=== PATIENT | male | born 1980 | race Caucasian/White ===

== ENCOUNTER 2019-06-24 15:54 | Observation (INO) | payer MEDICAID ==
[~2019-06-24] VITALS: Ht 182.9 cm; Wt 60.0 kg
[2019-06-24 16:36] LABS: BASOPHILS % (AUTO) 0.6 % (0-1); EOSINOPHILS % (AUTO) 0.1 % (0-6); HEMATOCRIT 39.6 % (42.0-52.0); HEMOGLOBIN 13.9 g/dl (14.0-17.9); LYMPHOCYTES # (AUTO) 1.3 X10'3 (1.1-4.8); MEAN CORPUSCULAR HEMOGLOBIN 35.9 PG (27.0-31.0); MEAN CORPUSCULAR HGB CONC 35.2 g/dL (33.0-36.5); MEAN CORPUSCULAR VOLUME 101.9 FL (78-98); MONOCYTES # (AUTO) 1.4 X10'3 (0-0.9); MONOCYTES % (AUTO) 18.2 % (2-12); NEUTROPHILS # (AUTO) 4.9 X10'3 (1.8-7.7); NEUTROPHILS % (AUTO) 64.1 % (42-75); PLATELET COUNT 208 X10'3 (140-440); RED BLOOD COUNT 3.88 X10'6 (4.70-6.10); WHITE BLOOD COUNT 7.7 X10'3 (4.5-11.0)
[2019-06-24 16:53] LABS: ALANINE AMINOTRANSFERASE 55 U/L (12-78); ALBUMIN 3.5 G/DL (3.4-5.0); ALBUMIN/GLOBULIN RATIO 1.2 (1.1-1.5); ALKALINE PHOSPHATASE 82 IU/L (46-116); ANION GAP 14 (8-16); ASPARTATE AMINO TRANSFERASE 35 U/L (10-37); BILIRUBIN,TOTAL 1.4 MG/DL (0.1-1.0); BLOOD UREA NITROGEN 18 MG/DL (7-18); BUN/CREATININE RATIO 14.8 (5.4-32.0); CALCIUM 7.8 MG/DL (8.5-10.1); CHLORIDE 100 MMOL/L (99-107); CREATININE 1.22 MG/DL (0.60-1.10); GLUCOSE 184 MG/DL (70-104); LIPASE 91 U/L (73-393); POTASSIUM 4.7 MMOL/L (3.5-5.1); SODIUM 133 MMOL/L (135-145); TOTAL CARBON DIOXIDE 19.4 MMOL/L (24-32); TOTAL PROTEIN 6.5 G/DL (6.4-8.2); eGFR 67 ML/MIN
[2019-06-24 17:36] LABS: ABG BASE EXCESS -11.3 mmol/L (-2.0-3.0); ABG HCO3 13.4 mmol/L (22.0-26.0); ABG PCO2 (T) 27.6 mmHg (35.0-45.0); ABG PH (T) 7.305 (7.350-7.450); ABG PO2 (T) 109.5 mmHg (83-108); ALLEN'S TEST Positive; FCOHb 0.9 % (0.5-1.5); FMetHb 0.2 % (0.3-1.12); FO2Hb 96.9 % (94-100); TOTAL HEMOGLOBIN 13.7 G/dl (14.0-17.9)
[2019-06-24] MEDS ORDERED: MESSAGE TO PHARMACY PO ONE (18:05)
[2019-06-24] MEDS ORDERED: magnesium 4gm in 100ml NS 100 ML IV PRN (18:05)
[2019-06-24] MEDS ORDERED: potassium Cl 20 mEq SR tablet PO PRN ×2 (18:05)
[2019-06-24] MEDS ORDERED: magnesium Cl slow-release 64mg tablet PO PRN (18:05)
[2019-06-24] MEDS ORDERED: magnesium 2GM in 50ml NS 50 ML IV PRN (18:05)
[2019-06-24] MEDS ORDERED: glucagon, human recombinant 1mg kit SUBCUT PRN (18:05)
[2019-06-24] MEDS ORDERED: potassium CL 10mEq/100ml bag 100 ML IV PRN ×2 (18:05)
[2019-06-24] MEDS ORDERED: dextrose ORAL solution 15 GM/59 ML bottle PO PRN ×2 (18:05)
[2019-06-24] MEDS ORDERED: acetaminophen 325mg tablet PO PRN (18:05)
[2019-06-24] MEDS ORDERED: dextrose 50%-water 50ml dispensing syringe IV PRN ×2 (18:05)
[2019-06-24] MEDS ORDERED: ondansetron/PF 4mg/2ml inj IV PRN (18:05)
[2019-06-24] MEDS ORDERED: haloperidol lactate 5mg/ml inj IM PRN (18:30)
[2019-06-24] MEDS ORDERED: thiamine inj. 100 MG in normal saline 100ml IV soln 100 ML IV ONE (18:30)
[2019-06-24] MEDS ORDERED: haloperidol 5mg tablet PO PRN (18:30)
[2019-06-24] MEDS: normal saline 1000ml 1,000 ML IV SCH (18:34)
[2019-06-24 18:35] LABS: HEMOGLOBIN A1C 8.8 % (4.5-6.2)
[2019-06-24] MEDS: insulin Lispro (HumaLOG) vial - multi-dose SQ SCH ×2 (19:22→20:58)
--- NOTE | 2019-06-24 19:30 | NUR ---
Received report from Rachana HERRERA pt arrived via gurney, ambulated to bed, on RA, A&Ox4, oriented to room, laurie vivas.
[2019-06-24 19:45] VITALS: BP 135/81
[2019-06-24] MEDS: LORazepam 2 mg/ml vial IV PRN (20:08)
[2019-06-24] MEDS: nicotine 21mg patch - 24 hr TD SCH (20:08)
[2019-06-24] MEDS ORDERED: MULT-933 PO (20:55)
[2019-06-24] MEDS ORDERED: INSU100C4 SQ (20:56)
[2019-06-24] MEDS ORDERED: insulin glargine (Lantus) pen - multi-dose SQ SCH (21:00)
[2019-06-24 22:16] LABS: ALANINE AMINOTRANSFERASE 49 U/L (12-78); ALBUMIN 3.4 G/DL (3.4-5.0); ALBUMIN/GLOBULIN RATIO 1.2 (1.1-1.5); ALKALINE PHOSPHATASE 75 IU/L (46-116); ANION GAP 13 (8-16); ASPARTATE AMINO TRANSFERASE 28 U/L (10-37); BILIRUBIN,TOTAL 1.3 MG/DL (0.1-1.0); BLOOD UREA NITROGEN 16 MG/DL (7-18); BUN/CREATININE RATIO 13.2 (5.4-32.0); CALCIUM 7.7 MG/DL (8.5-10.1); CHLORIDE 100 MMOL/L (99-107); CREATININE 1.21 MG/DL (0.60-1.10); GLUCOSE 194 MG/DL (70-104); POTASSIUM 3.1 MMOL/L (3.5-5.1); SODIUM 133 MMOL/L (135-145); TOTAL CARBON DIOXIDE 19.9 MMOL/L (24-32); TOTAL PROTEIN 6.2 G/DL (6.4-8.2); eGFR 67 ML/MIN
[2019-06-24 22:30] VITALS: BP 131/81
[2019-06-25] MEDS: LORazepam 2 mg/ml vial IV PRN ×2 (02:29→11:40)
[2019-06-25 02:30] VITALS: BP 118/75
[2019-06-25] MEDS: normal saline 1000ml 1,000 ML IV SCH (02:47)
[2019-06-25 06:00] VITALS: BP 118/66
[2019-06-25 06:12] LABS: HEMATOCRIT 36.7 % (42.0-52.0); MEAN CORPUSCULAR HEMOGLOBIN 35.7 PG (27.0-31.0); MEAN CORPUSCULAR HGB CONC 35.5 g/dL (33.0-36.5); MEAN CORPUSCULAR VOLUME 100.5 FL (78-98); PLATELET COUNT 181 X10'3 (140-440); RED BLOOD COUNT 3.65 X10'6 (4.70-6.10); RED CELL DISTRIBUTION WIDTH 13.1 % (11.5-14.5); WHITE BLOOD COUNT 5.8 X10'3 (4.5-11.0)
[2019-06-25 06:13] LABS: BASOPHILS % (AUTO) 0.5 % (0-1); EOSINOPHILS # (AUTO) 0.1 X10'3 (0-0.9); LYMPHOCYTES # (AUTO) 1.4 X10'3 (1.1-4.8); LYMPHOCYTES % (AUTO) 24.1 % (21-51); MEAN PLATELET VOLUME 8.1 FL (7.4-10.4); MONOCYTES # (AUTO) 0.9 X10'3 (0-0.9); MONOCYTES % (AUTO) 14.6 % (2-12); NEUTROPHILS # (AUTO) 3.5 X10'3 (1.8-7.7); NEUTROPHILS % (AUTO) 59.8 % (42-75)
--- NOTE | 2019-06-25 06:20 | NUR ---
Patient in room PCU 3024. I have received report from Cira HERRERA and had the opportunity to ask questions and assume patient care.
--- NOTE | 2019-06-25 06:23 | NUR ---
Gave report to Sebastian HERRERA pt is rsting on RA in no apparent distress, call light and items of freq use within reach.
[2019-06-25 06:27] LABS: ALANINE AMINOTRANSFERASE 48 U/L (12-78); ALBUMIN 3.1 G/DL (3.4-5.0); ALBUMIN/GLOBULIN RATIO 1.1 (1.1-1.5); ALKALINE PHOSPHATASE 69 IU/L (46-116); AMYLASE 21 U/L (25-115); ANION GAP 9 (8-16); ASPARTATE AMINO TRANSFERASE 35 U/L (10-37); BILIRUBIN,TOTAL 1.2 MG/DL (0.1-1.0); BLOOD UREA NITROGEN 14 MG/DL (7-18); CALCIUM 7.9 MG/DL (8.5-10.1); CHLORIDE 103 MMOL/L (99-107); GLUCOSE 188 MG/DL (70-104); LIPASE 208 U/L (73-393); PHOSPHORUS 1.5 MG/DL (2.3-4.5); POTASSIUM 3.6 MMOL/L (3.5-5.1); SODIUM 136 MMOL/L (135-145); TOTAL CARBON DIOXIDE 23.9 MMOL/L (24-32); TOTAL PROTEIN 5.8 G/DL (6.4-8.2); eGFR 84 ML/MIN
[2019-06-25] MEDS ORDERED: MVI, adult No.4 with vit. K 10 ML in dextrose 5% water 500ml 500 ML IV SCH ×2 (08:00)
[2019-06-25] MEDS ORDERED: thiamine inj. 100 MG, folic acid inj. 2 MG in normal saline 100ml IV soln 100 ML IV SCH (08:00)
[2019-06-25] MEDS ORDERED: folic acid 1mg tablet PO SCH (08:00)
[2019-06-25] MEDS ORDERED: thiamine 100mg tablet PO SCH (08:00)
[2019-06-25] MEDS ORDERED: K and/or MAG REPLACEMENT MC SCH (08:00)
[2019-06-25] MEDS ORDERED: multivitamins, therapeutics tablet PO SCH (08:00)
[2019-06-25] MEDS: nicotine 21mg patch - 24 hr TD SCH (08:52)
[2019-06-25] MEDS: insulin Lispro (HumaLOG) vial - multi-dose SQ SCH ×2 (08:59→13:33)
[2019-06-25 10:38] LABS: ALANINE AMINOTRANSFERASE 51 U/L (12-78); ALBUMIN 3.1 G/DL (3.4-5.0); ALBUMIN/GLOBULIN RATIO 1.2 (1.1-1.5); ALKALINE PHOSPHATASE 70 IU/L (46-116); ANION GAP 6 (8-16); ASPARTATE AMINO TRANSFERASE 65 U/L (10-37); BLOOD UREA NITROGEN 13 MG/DL (7-18); BUN/CREATININE RATIO 14.4 (5.4-32.0); CALCIUM 7.9 MG/DL (8.5-10.1); CHLORIDE 103 MMOL/L (99-107); GLUCOSE 200 MG/DL (70-104); POTASSIUM 3.2 MMOL/L (3.5-5.1); SODIUM 136 MMOL/L (135-145); TOTAL CARBON DIOXIDE 26.7 MMOL/L (24-32); TOTAL PROTEIN 5.6 G/DL (6.4-8.2); eGFR > 90 ML/MIN
[2019-06-25 11:00] VITALS: BP 111/60
[2019-06-25] MEDS ORDERED: LANTUS SQ (12:29)
[2019-06-25] MEDS ORDERED: FOLI1TAB16 PO (12:29)
[2019-06-25] MEDS ORDERED: thiamine tablet PO (12:29)
--- NOTE | 2019-06-25 14:04 | NUR ---
Malnutrition consult: Pt seen at bedside states he is unsure if he has had any wt loss and reports UBW 145 lbs, current documented wt is 132 lbs with no method of how wt was obtained. Pt currently 91% reported UBW. Pt with no decrease in muscle strength, no edema, and with no visible fat or muscle wasting. Pt currently on CHO controlled diet documented with 75% PO intake likely meeting nutrient needs. Pt currently does not meet criteria for malnutrition. Pt admit with DKA which resolved by the time the patient arrived by air ambulance per H&P. Pt had been out of his insulin for his insulin pump for 5 days and had not had test strips for that timeframe per H&P, director social has already been consulted. Pt also with heavy Etoh abuse, currently on Etoh w/d protocol receiving MVI, Thiamine, and Folic acid. Pt denies any questions about DM management at this time. Written DM ed with referral to outpatient DM class and RD contact information provided. Pt denies any food allergies, difficulty chewing/swallowing, or constipation/diarrhea. Will continue to follow. Recommendations: 1) Continue CHO controlled diet 2) Continue Thiamine, Folic acid, and MVI given Etoh use with elevated MCV 3) Wt per rx Addendum: 06/25/19 at [address] Amended: Links added.
[2019-06-25 15:00] VITALS: BP 107/66
--- NOTE | 2019-06-25 16:10 | NUR ---
Pt DC'd home with mom. Pt stable upon DC, vitals within normal limits. IV's removed, canulas intact. Telebox removed and returned to tele-tech. DC paperwork gone over with Pt. Allowed Pt to ask questions regarding DC directions and new meds and then answered them. New prescriptions called into [facility] pharmacy in [place]. Follow up appointment made with Chava Lua at [facility] on 07/01/19 1140AM. Pt gathered belongings and was wheeled down to lobby in wheelchair by nurse where Pt left with mom in private vehicle.
[2019-06-25 16:16] LABS: ALANINE AMINOTRANSFERASE 69 U/L (12-78); ALBUMIN 3.2 G/DL (3.4-5.0); ALBUMIN/GLOBULIN RATIO 1.2 (1.1-1.5); ALKALINE PHOSPHATASE 72 IU/L (46-116); ANION GAP 8 (8-16); ASPARTATE AMINO TRANSFERASE 159 U/L (10-37); BILIRUBIN,TOTAL 0.9 MG/DL (0.1-1.0); BLOOD UREA NITROGEN 10 MG/DL (7-18); BUN/CREATININE RATIO 11.8 (5.4-32.0); CALCIUM 8.8 MG/DL (8.5-10.1); CHLORIDE 103 MMOL/L (99-107); CREATININE 0.85 MG/DL (0.60-1.10); GLUCOSE 154 MG/DL (70-104); POTASSIUM 3.2 MMOL/L (3.5-5.1); SODIUM 138 MMOL/L (135-145); TOTAL CARBON DIOXIDE 27.3 MMOL/L (24-32); TOTAL PROTEIN 5.9 G/DL (6.4-8.2); eGFR > 90 ML/MIN
[2019-06-26] MEDS ORDERED: LORazepam 1 MG tablet PO PRN (18:30)
[2019-06-26] MEDS ORDERED: LORazepam 2 mg/ml vial IV PRN (18:30)
== END 2019-06-25 16:10 | disposition home or self-care (01) ==
LOC: ER 15:54 → PCU 3S 19:39
PROVIDERS: ADMIT Family Medicine; ATTEND Family Medicine
DX: E10.65 Type 1 diabetes mellitus with hyperglycemia (principal); E10.10 Type 1 diabetes mellitus with ketoacidosis without coma; R11.2 Nausea with vomiting, unspecified; F10.10 Alcohol abuse, uncomplicated; E87.1 Hypo-osmolality and hyponatremia; F17.210 Nicotine dependence, cigarettes, uncomplicated; Z79.4 Long term (current) use of insulin; Z96.41 Presence of insulin pump (external) (internal); Z72.0 Tobacco use; Z80.1 Family history of malignant neoplasm of trachea, bronchus and lung
CPT/HCPCS: 36415; 36600; 80053; 82150; 82803; 82948; 83036; 83690; 83735; 84100; 85018; 85025; 85610; 87081; 96361; 96365; 96372; 96375; 96376; 97116; 97161; 97530; 99284; G0378; J1815; J2060; J3411; J7030; J3490; J7060

== ENCOUNTER 2019-08-10 00:11 | Inpatient (IN) | payer MEDICAID ==
[~2019-08-10] VITALS: Ht 182.9 cm; Wt 65.0 kg
[~2019-08-10 00:11] MED LIST: FOLI1TAB16 PO; INSU100C4 SQ; LANTUS SQ; thiamine tablet PO
--- NOTE | 2019-08-10 00:26 | NUR ---
PT GIVEN WARM BLANKETS AND SEIZURE PRECAUTIONS INITIATED SECONDARY TO POSSIBLE ETOH WITHDRAWL. LABS HAVE BEEN DRAWN. PT IS ALERT AND ORIENTED AND COOPERATIVE WITH CARE. CONFIRMED WITH PT THAT HIS INSULIN PUMP IS OFF AND NOT TO DOSE HIMSELF WITH INSULIN AT THIS TIME.
[2019-08-10] MEDS ORDERED: LORazepam 2 mg/ml vial IV ONE (00:35)
[2019-08-10 00:41] LABS: BASOPHILS # (AUTO) 0.1 X10'3 (0-0.2); BASOPHILS % (AUTO) 0.5 % (0-1); EOSINOPHILS % (AUTO) 0 % (0-6); HEMATOCRIT 39.9 % (42.0-52.0); LYMPHOCYTES # (AUTO) 1.5 X10'3 (1.1-4.8); LYMPHOCYTES % (AUTO) 14.4 % (21-51); MEAN CORPUSCULAR HEMOGLOBIN 35.4 PG (27.0-31.0); MEAN CORPUSCULAR HGB CONC 35.1 g/dL (33.0-36.5); MEAN CORPUSCULAR VOLUME 100.9 FL (78-98); MEAN PLATELET VOLUME 8.1 FL (7.4-10.4); MONOCYTES # (AUTO) 1.4 X10'3 (0-0.9); MONOCYTES % (AUTO) 13.6 % (2-12); NEUTROPHILS # (AUTO) 7.2 X10'3 (1.8-7.7); NEUTROPHILS % (AUTO) 71.5 % (42-75); PLATELET COUNT 222 X10'3 (140-440); RED BLOOD COUNT 3.96 X10'6 (4.70-6.10); RED CELL DISTRIBUTION WIDTH 12.9 % (11.5-14.5); WHITE BLOOD COUNT 10.1 X10'3 (4.5-11.0)
[2019-08-10 00:52] LABS: ALANINE AMINOTRANSFERASE 38 U/L (12-78); ALBUMIN 3.7 G/DL (3.4-5.0); ALBUMIN/GLOBULIN RATIO 1.1 (1.1-1.5); ALKALINE PHOSPHATASE 101 IU/L (46-116); ANION GAP 24 (8-16); ASPARTATE AMINO TRANSFERASE 35 U/L (10-37); BILIRUBIN,TOTAL 0.8 MG/DL (0.1-1.0); BLOOD UREA NITROGEN 18 MG/DL (7-18); BUN/CREATININE RATIO 16.1 (5.4-32.0); CALCIUM 8.2 MG/DL (8.5-10.1); CHLORIDE 96 MMOL/L (99-107); CREATININE 1.12 MG/DL (0.60-1.10); GLUCOSE 232 MG/DL (70-104); POTASSIUM 5.4 MMOL/L (3.5-5.1); SODIUM 133 MMOL/L (135-145); TOTAL PROTEIN 7.1 G/DL (6.4-8.2); eGFR 74 ML/MIN
[2019-08-10 00:55] LABS: TOTAL CARBON DIOXIDE 12.7 MMOL/L (24-32)
[2019-08-10] MEDS ORDERED: potassium CL 20mEq in D5-1/2NS 1,000 ML IV PRN (00:59)
[2019-08-10] MEDS ORDERED: normal saline 1000ml 1,000 ML IV SCH ×2 (00:59→01:40)
[2019-08-10] MEDS ORDERED: sodium bicarbonate (8.4%) inj. 100 MEQ in dextrose 5% water 500ml 500 ML IV PRN (00:59)
[2019-08-10] MEDS ORDERED: sodium bicarbonate (8.4%) inj. 50 MEQ in dextrose 5% water 500ml 250 ML IV PRN (00:59)
[2019-08-10] MEDS ORDERED: sodium phosphate inj. 15 MMOL in dextrose 5%-water 150 ML IV PRN (01:00)
[2019-08-10] MEDS ORDERED: Neutra Phos packet PO PRN (01:00)
[2019-08-10] MEDS ORDERED: sodium phosphate inj. 30 MMOL in dextrose 5%-water 250 ML IV PRN (01:00)
[2019-08-10] MEDS ORDERED: potassium Cl 20 mEq SR tablet PO PRN ×4 (01:00→01:40)
[2019-08-10] MEDS ORDERED: potassium CL 10mEq/100ml bag 100 ML IV PRN ×4 (01:00→01:40)
[2019-08-10] MEDS ORDERED: insulin regular, human vial - multi-dose IV PRN ×2 (01:00→02:00)
[2019-08-10 01:18] LABS: PHOSPHORUS 3.5 MG/DL (2.3-4.5)
[2019-08-10] MEDS: dextrose 5%-1/2 normal saline 1,000 ML IV SCH ×4 (01:21→21:10)
[2019-08-10] MEDS: insulin regular, DKA only 100 UNIT in normal saline 100ml IV soln 99 ML IV SCH ×4 (01:26→01:35)
[2019-08-10] MEDS ORDERED: insulin regular, human 10 units/0.1 ml syringe SQ ONE (01:35)
[2019-08-10] MEDS ORDERED: mag hydrox/Alum hydrox/simeth 30ml oral suspension PO PRN (01:40)
[2019-08-10] MEDS ORDERED: magnesium 4gm in 100ml NS 100 ML IV PRN (01:40)
[2019-08-10] MEDS ORDERED: thiamine inj. 100 MG in normal saline 100ml IV soln 100 ML IV ONE (01:40)
[2019-08-10] MEDS ORDERED: haloperidol 5mg tablet PO PRN (01:40)
[2019-08-10] MEDS ORDERED: magnesium 2GM in 50ml NS 50 ML IV PRN (01:40)
[2019-08-10] MEDS ORDERED: acetaminophen 325mg tablet PO PRN ×2 (01:40)
[2019-08-10] MEDS ORDERED: haloperidol lactate 5mg/ml inj IM PRN (01:40)
[2019-08-10] MEDS ORDERED: insulin regular, DKA only 100 UNIT in normal saline 100ml IV soln 99 ML IV SCH ×2 (01:40)
[2019-08-10] MEDS ORDERED: ondansetron/PF 4mg/2ml inj IV PRN (01:40)
[2019-08-10] MEDS ORDERED: magnesium Cl slow-release 64mg tablet PO PRN (01:40)
[2019-08-10] MEDS ORDERED: magnesium hydroxide 30ml (MOM) UD suspension PO PRN (01:40)
[2019-08-10] MEDS ORDERED: thiamine 100mg/ml 2ml inj. IV ONE (01:55)
[2019-08-10] MEDS ORDERED: dextrose 50%-water 50ml dispensing syringe IV PRN ×3 (02:00→13:15)
[2019-08-10 02:34] LABS: BACTERIA,URINE NONE SEEN /HPF (Neg); CLARITY,URINE CLEAR (Clear); COLOR,URINE YELLOW (Yellow); GLUCOSE, URINE 500 mg/dl (Neg); KETONES,URINE >=80 mg/dl (Neg); LEUKOCYTE ESTERASE ,URINE NEGATIVE (Neg); NITRITES, URINE NEGATIVE (Neg); OCCULT BLOOD,URINE TRACE-INTACT (Neg); PH,URINE 5.5 (4.8-8.0); PROTEIN,URINE NEGATIVE (Neg); RBC,URINE 0-2 /HPF (0-2); SQUAMOUS EPITHELIAL CELL,UR FEW /LPF (FEW); UA COLLECTION TYPE VOIDED; UROBILINOGEN,URINE 0.2 E.U/dL (0.2-1.0); WBC,URINE NONE SEEN /HPF (0-4)
[2019-08-10 03:31] VITALS: BP 138/78
--- NOTE | 2019-08-10 04:47 | NUR ---
Patient in room PCU 3023. I have received report from Ofelia HERRERA and had the opportunity to ask questions and assume patient care.
--- NOTE | 2019-08-10 04:49 | NUR ---
Received report from Ofelia HERRERA, who wasn't feeling well, around 0430 and the patient was brought up around 0400. Patient is stable and is on an insulin drip @5, D5 1/2 NS @150.
[2019-08-10 06:00] VITALS: BP 118/72
[2019-08-10 06:00] LABS: ALBUMIN 3.1 G/DL (3.4-5.0); ANION GAP 16 (8-16); BLOOD UREA NITROGEN 13 MG/DL (7-18); BUN/CREATININE RATIO 11.4 (5.4-32.0); CALCIUM 8.1 MG/DL (8.5-10.1); CHLORIDE 99 MMOL/L (99-107); CREATININE 1.14 MG/DL (0.60-1.10); GLUCOSE 233 MG/DL (70-104); PHOSPHORUS 2.1 MG/DL (2.3-4.5); POTASSIUM 4.3 MMOL/L (3.5-5.1); SODIUM 131 MMOL/L (135-145); TOTAL CARBON DIOXIDE 15.8 MMOL/L (24-32); eGFR 72 ML/MIN
--- NOTE | 2019-08-10 06:15 | NUR ---
Problems reprioritized. Patient report given, questions answered & plan of care reviewed with Shawnee HERRERA.
--- NOTE | 2019-08-10 06:53 | NUR ---
Patient in room PCU 3023. I have received report from Adam and had the opportunity to ask questions and assume patient care. Patient on insulin drip, 5 units/hr. Pumped locked. Patient resting comfortably
[2019-08-10] MEDS ORDERED: K and/or MAG REPLACEMENT MC SCH (08:00)
[2019-08-10] MEDS: K and/or MAG REPLACEMENT MC SCH (08:00)
[2019-08-10 08:17] LABS: ALBUMIN 3.2 G/DL (3.4-5.0); ANION GAP 10 (8-16); BLOOD UREA NITROGEN 12 MG/DL (7-18); BUN/CREATININE RATIO 11.5 (5.4-32.0); CALCIUM 8.1 MG/DL (8.5-10.1); CHLORIDE 102 MMOL/L (99-107); CREATININE 1.04 MG/DL (0.60-1.10); GLUCOSE 167 MG/DL (70-104); PHOSPHORUS 1.7 MG/DL (2.3-4.5); SODIUM 132 MMOL/L (135-145); TOTAL CARBON DIOXIDE 19.6 MMOL/L (24-32); eGFR 80 ML/MIN
[2019-08-10] MEDS: potassium CL 20mEq in D5-1/2NS 1,000 ML IV PRN ×2 (09:18→19:21)
[2019-08-10] MEDS: thiamine 100mg tablet PO SCH (09:47)
[2019-08-10] MEDS: enoxaparin 40mg/0.4ml syringe SUBCUT SCH (09:50)
[2019-08-10] MEDS: LORazepam 2 mg/ml vial IV PRN ×3 (09:58→21:31)
--- NOTE | 2019-08-10 10:20 | NUR ---
New orders from Dr. Hagen: Discontinue insulin gtt. IV fluids at 75 mL/hour. Q1H blood glucose checks. SQ Humalog.
--- NOTE | 2019-08-10 10:20 | NUR ---
Paged Dr. Hagen: PAGER ID: [phone] MESSAGE: RE: Kapil Pizarro [phone]. Patient C/O of severe sore throat and not eating at this time. BG 74 with insulin at 5 U/hr. IVF at 250. Decreased Insulin gtt to 2 units/hour and will have patient eat YOGESH. Thank you Dr. Hagen. Shawnee [phone]
[2019-08-10 11:00] VITALS: BP 110/64
[2019-08-10] MEDS ORDERED: glucagon, human recombinant 1mg kit SUBCUT PRN (13:15)
[2019-08-10] MEDS ORDERED: dextrose ORAL solution 15 GM/59 ML bottle PO PRN ×2 (13:15)
[2019-08-10] MEDS: insulin Lispro (HumaLOG) vial - multi-dose SQ SCH ×5 (13:34→18:59)
--- NOTE | 2019-08-10 14:46 | NUR ---
DM Consult: A1C 8.8; pt admit w/ DKA hx heavy etoh abuse drinks 6 pack and one pint vodka daily per EMR. Pt here in June w/ DKA and etoh abuse. Pt currently having N/V today and not appropriate for DM ed. PATRICK d/w RN regarding thiamin/folic/MVI given etoh hx per MD approval. LBM 08/10. Advanced to carb controlled diet 0% carbs only documented in EMR. Will monitor for PO hx this admit and appropriateness for DM ed prior to d/c. Rec: 1. continue carb controlled diet 2. monitor for ONS needs pending further PO hx 3. DM ed once stable prior to d/c 4. thiamin/folic/MVI for etoh 5. wt per rx Addendum: 08/10/19 at [address] Amended: Links added.
[2019-08-10 15:00] VITALS: BP 108/69
--- NOTE | 2019-08-10 17:02 | NUR ---
Paged Dr. Hagen: PAGER ID: [phone] MESSAGE: RE: Kapil Pizarro [id number]. Patient more awake and has tolerated clear liquids. Ordering patient dinner tray. Blood sugar 142. Do you want AC/HS checks and discontinue IVF? Thank you. Shawnee [phone]
--- NOTE | 2019-08-10 18:27 | NUR ---
Problems reprioritized. Patient report given, questions answered & plan of care reviewed with Chi HERRERA. Patient stable at transfer of care.
--- NOTE | 2019-08-10 18:40 | NUR ---
Student documentation: I have reviewed and agree with all interventions, assessments performed and documented by Susi HERRERA. Student Medication Administration: For this medication-pass time frame, all medication were reviewed, dispensed, administered and documented per hospital policy by Susi WITT.
--- NOTE | 2019-08-10 18:46 | NUR ---
Patient in room PCU 3014. I have received report from Shawnee HERRERA and had the opportunity to ask questions and assume patient care.
[2019-08-10 19:00] VITALS: BP 141/88
[2019-08-10] MEDS ORDERED: insulin glargine (Lantus) pen - multi-dose SQ SCH (21:00)
--- NOTE | 2019-08-10 22:08 | NUR ---
[facility] [place] [facility] 10 units of lantus if the blood sugar was above 200. The patient's blood sugar was 211, will be giving 10 units of lantus and checking blood sugar q4.
[2019-08-10 23:00] VITALS: BP 131/86
[2019-08-11] MEDS: LORazepam 2 mg/ml vial IV PRN ×3 (00:29→07:34)
[2019-08-11 02:30] VITALS: BP 130/89
[2019-08-11] MEDS: dextrose 5%-1/2 normal saline 1,000 ML IV SCH (03:50)
[2019-08-11 05:54] LABS: BASOPHILS % (AUTO) 0.5 % (0-1); EOSINOPHILS # (AUTO) 0.1 X10'3 (0-0.9); EOSINOPHILS % (AUTO) 1.3 % (0-6); HEMATOCRIT 40.3 % (42.0-52.0); HEMOGLOBIN 14.2 g/dl (14.0-17.9); LYMPHOCYTES # (AUTO) 1.7 X10'3 (1.1-4.8); LYMPHOCYTES % (AUTO) 35.7 % (21-51); MEAN CORPUSCULAR HEMOGLOBIN 35.6 PG (27.0-31.0); MEAN CORPUSCULAR HGB CONC 35.3 g/dL (33.0-36.5); MEAN CORPUSCULAR VOLUME 100.9 FL (78-98); MEAN PLATELET VOLUME 7.8 FL (7.4-10.4); MONOCYTES # (AUTO) 0.7 X10'3 (0-0.9); MONOCYTES % (AUTO) 13.6 % (2-12); NEUTROPHILS # (AUTO) 2.4 X10'3 (1.8-7.7); NEUTROPHILS % (AUTO) 48.9 % (42-75); PLATELET COUNT 192 X10'3 (140-440); RED BLOOD COUNT 3.99 X10'6 (4.70-6.10); RED CELL DISTRIBUTION WIDTH 13.1 % (11.5-14.5); WHITE BLOOD COUNT 4.9 X10'3 (4.5-11.0)
[2019-08-11 05:59] LABS: ANION GAP 8 (8-16); BLOOD UREA NITROGEN 7 MG/DL (7-18); BUN/CREATININE RATIO 8.9 (5.4-32.0); CALCIUM 8.5 MG/DL (8.5-10.1); CHLORIDE 102 MMOL/L (99-107); CREATININE 0.79 MG/DL (0.60-1.10); GLUCOSE 229 MG/DL (70-104); MAGNESIUM 1.7 MG/DL (1.5-2.4); PHOSPHORUS 1.7 MG/DL (2.3-4.5); POTASSIUM 3.6 MMOL/L (3.5-5.1); SODIUM 135 MMOL/L (135-145); TOTAL CARBON DIOXIDE 25.1 MMOL/L (24-32); eGFR > 90 ML/MIN
[2019-08-11 06:00] VITALS: BP 129/83
--- NOTE | 2019-08-11 06:22 | NUR ---
Problems reprioritized. Patient report given, questions answered & plan of care reviewed with Wilma HERRERA.
--- NOTE | 2019-08-11 06:48 | NUR ---
Patient in room PCU 3014. I have received report from SHARON Mireles and had the opportunity to ask questions and assume patient care. Patient currently resting in bed, bed locked and low, call light in reach, no acute distress, fluids running at 100ml/hr per order, will continue to monitor.
[2019-08-11] MEDS: insulin Lispro (HumaLOG) vial - multi-dose SQ SCH (07:25)
[2019-08-11] MEDS: thiamine 100mg tablet PO SCH (07:26)
[2019-08-11] MEDS: enoxaparin 40mg/0.4ml syringe SUBCUT SCH (07:26)
[2019-08-11] MEDS: K and/or MAG REPLACEMENT MC SCH (07:27)
[2019-08-11] MEDS ORDERED: CHLO25CA10 PO (10:16)
--- NOTE | 2019-08-11 11:39 | NUR ---
Received orders for patient discharge, discussed with patient. Provided patient with education on alcohol use disorder and diabetes, patient verbalized understanding of teaching. Patient was provided with prescription for librium for alcohol withdrawal and instructed in how to use the medication safely. Patient contacted his mother for a ride, she lives in [place], patient stated he would like to get the discharge process done and he will wait for her in the [facility]. IVs removed, catheter tips intact, hemostasis achieved, telemetry removed, wrist band removed. Patient transported to [facility] via wheelchair by PCT, stable at time of discharge.
[2019-08-12] MEDS ORDERED: LORazepam 2 mg/ml vial IV PRN (01:40)
[2019-08-12] MEDS ORDERED: LORazepam 1 MG tablet PO PRN (01:40)
[2019-08-14] MEDS ORDERED: LORazepam 1 MG tablet PO PRN (01:40)
[2019-08-14] MEDS ORDERED: LORazepam 2 mg/ml vial IV PRN (01:40)
== END 2019-08-11 11:44 | disposition home or self-care (01) | DRG 813 ==
LOC: ER 00:12 → ED HOLD 02:02 → EDBEDREQ 02:35 → PCU 3S 03:20
PROVIDERS: ADMIT Hospitalist; ATTEND Internal Medicine
DX: T85.614A Breakdown (mechanical) of insulin pump, initial encounter (principal); E10.10 Type 1 diabetes mellitus with ketoacidosis without coma; E83.39 Other disorders of phosphorus metabolism; X58.XXXA Exposure to other specified factors, initial encounter; F10.239 Alcohol dependence with withdrawal, unspecified; Z80.1 Family history of malignant neoplasm of trachea, bronchus and lung; Y93.89 Activity, other specified; Y92.89 Other specified places as the place of occurrence of the external cause; Y99.8 Other external cause status
CPT/HCPCS: 36415; 80048; 80053; 81001; 82948; 83605; 83735; 84100; 85025; 85610; 87081; 96372; 96374; 99285; G0378; J1650; J1815; J2060; J2405; J3411; J3480; J7030

== ENCOUNTER 2021-01-25 16:18 | Inpatient (IN) | payer MEDICAID ==
[~2021-01-25] VITALS: Ht 185.4 cm; Wt 59.1 kg
[~2021-01-25 16:18] MED LIST changes: +CHLO25CA10 PO; -FOLI1TAB16 PO; -LANTUS SQ; -thiamine tablet PO
[2021-01-25] MEDS ORDERED: LORazepam 2 mg/ml vial IV ONE (17:00)
[2021-01-25] MEDS ORDERED: SUCR1TAB PO (17:04)
[2021-01-25] MEDS ORDERED: OMEP40CA13 PO (17:04)
[2021-01-25] MEDS ORDERED: INSULIN PUMP (17:07)
[2021-01-25] MEDS ORDERED: normal saline 1000ML IV soln IVB ONE (17:10)
[2021-01-25] MEDS ORDERED: magnesium Cl slow-release 64mg tablet PO PRN (17:15)
[2021-01-25] MEDS ORDERED: potassium Cl 40MEQ/1/2NS 520ml 520 ML IV PRN ×4 (17:15→17:20)
[2021-01-25] MEDS ORDERED: HYDROcodone/acetaminophen 10/325mg tab PO PRN (17:15)
[2021-01-25] MEDS ORDERED: potassium Cl 20 mEq SR tablet PO PRN (17:15)
[2021-01-25] MEDS ORDERED: docusate sod 100mg capsule PO PRN (17:15)
[2021-01-25] MEDS ORDERED: ondansetron/PF 4mg/2ml inj IV PRN (17:15)
[2021-01-25] MEDS ORDERED: morphine 2 MG/ML inj. syringe IV PRN ×2 (17:15)
[2021-01-25] MEDS ORDERED: magnesium 2GM in 50ml NS 50 ML IV PRN (17:15)
[2021-01-25] MEDS ORDERED: acetaminophen 325mg tablet PO PRN ×2 (17:15)
[2021-01-25] MEDS ORDERED: magnesium 4gm in 100ml NS 100 ML IV PRN (17:15)
[2021-01-25] MEDS ORDERED: sodium phosphate inj. 15 MMOL in dextrose 5%-water 250 ML IV PRN (17:20)
[2021-01-25] MEDS ORDERED: Insulin Reg/NS 100units/100mL 100 ML IV SCH (17:20)
[2021-01-25] MEDS ORDERED: sodium bicarbonate (8.4%) inj. 100 MEQ in dextrose 5% water 500ml 500 ML IV PRN (17:20)
[2021-01-25] MEDS ORDERED: insulin regular, human U-100 3ml vial - multi-dose IV PRN (17:20)
[2021-01-25] MEDS ORDERED: potassium CL 20mEq in D5-1/2NS 1,000 ML IV PRN ×2 (17:20→20:00)
[2021-01-25] MEDS ORDERED: Neutra Phos packet PO PRN (17:20)
[2021-01-25] MEDS ORDERED: sodium bicarbonate (8.4%) inj. 50 MEQ in dextrose 5% water 500ml 250 ML IV PRN (17:20)
--- NOTE | 2021-01-25 17:26 | NUR ---
DR SAPP AT BEDSIDE
[2021-01-25 17:34] LABS: BASOPHILS # (AUTO) 0.1 X10'3 (0-0.2); BASOPHILS % (AUTO) 0.7 % (0-1); EOSINOPHILS % (AUTO) 0.4 % (0-6); HEMATOCRIT 39.8 % (42.0-52.0); HEMOGLOBIN 13.7 g/dl (14.0-17.9); LYMPHOCYTES # (AUTO) 1.1 X10'3 (1.1-4.8); MEAN CORPUSCULAR HEMOGLOBIN 35.1 PG (27.0-31.0); MEAN CORPUSCULAR HGB CONC 34.4 g/dL (33.0-36.5); MEAN PLATELET VOLUME 8.1 FL (7.4-10.4); MONOCYTES # (AUTO) 0.7 X10'3 (0-0.9); NEUTROPHILS # (AUTO) 6.9 X10'3 (1.8-7.7); NEUTROPHILS % (AUTO) 78.9 % (42-75); PLATELET COUNT 194 X10'3 (140-440); WHITE BLOOD COUNT 8.8 X10'3 (4.5-11.0)
[2021-01-25 17:48] LABS: PARTIAL THROMBOPLASTIN TIME 29 SECONDS (22-32)
[2021-01-25] MEDS: normal saline 1000ml 1,000 ML IV SCH ×4 (17:50→21:20)
[2021-01-25 17:52] LABS: ANION GAP 21 (8-16); BLOOD UREA NITROGEN 17 MG/DL (7-18); CHLORIDE 97 MMOL/L (99-107); GLUCOSE 313 MG/DL (70-104); POTASSIUM 4.1 MMOL/L (3.5-5.1); SODIUM 133 MMOL/L (135-145)
[2021-01-25 17:53] LABS: ALANINE AMINOTRANSFERASE 47 U/L (12-78); ALBUMIN 3.8 G/DL (3.4-5.0); ALBUMIN/GLOBULIN RATIO 1.1 (1.1-1.5); ALKALINE PHOSPHATASE 107 IU/L (46-116); ASPARTATE AMINO TRANSFERASE 47 U/L (10-37); BUN/CREATININE RATIO 11.4 (5.4-32.0); CALCIUM 8.6 MG/DL (8.5-10.1); CREATININE 1.49 MG/DL (0.60-1.10); TOTAL PROTEIN 7.4 G/DL (6.4-8.2); eGFR 53 ML/MIN
[2021-01-25] MEDS ORDERED: LORazepam 2 mg/ml vial IV PRN (17:55)
[2021-01-25 17:59] LABS: ABG HCO3 14.1 mmol/L (22.0-26.0); ABG OXYGEN SATURATION 98.1 % (94-97); ABG PCO2 (T) 29.5 mmHg (35.0-48.0); ALLEN'S TEST POSITIVE; FMetHb 0.3 % (0.0-1.5); FO2Hb 96.8 % (94-97); PATIENT TEMPERATURE 36.8; TOTAL HEMOGLOBIN 14.3 G/dl (14.0-18.0)
[2021-01-25 18:10] LABS: LIPASE 1705 U/L (73-393)
[2021-01-25 18:12] LABS: MAGNESIUM 2.4 MG/DL (1.5-2.4); PHOSPHORUS 2.1 MG/DL (2.3-4.5)
[2021-01-25 19:58] LABS: ALBUMIN 3.7 G/DL (3.4-5.0); ANION GAP 16 (8-16); BLOOD UREA NITROGEN 16 MG/DL (7-18); BUN/CREATININE RATIO 11.9 (5.4-32.0); CALCIUM 8.5 MG/DL (8.5-10.1); CHLORIDE 101 MMOL/L (99-107); CREATININE 1.35 MG/DL (0.60-1.10); GLUCOSE 213 MG/DL (70-104); POTASSIUM 3.6 MMOL/L (3.5-5.1); SODIUM 136 MMOL/L (135-145); TOTAL CARBON DIOXIDE 19.2 MMOL/L (24-32); eGFR 59 ML/MIN
[2021-01-25] MEDS: heparin, porcine 5000 units/ml vial SQ SCH (20:00)
[2021-01-25] MEDS ORDERED: K and/or MAG REPLACEMENT MC SCH (20:00)
[2021-01-25] MEDS: pantoprazole 40 MG vial IV SCH (20:00)
[2021-01-25] MEDS: K and/or MAG REPLACEMENT MC SCH (20:00)
--- NOTE | 2021-01-25 20:12 | NUR ---
CBG 249, Dr. Gee pg'ed, notified, we will start D51/2NS with 20 KCL at 150 per protocol. Pharmacy to mix. Started D51/2 NS at 150 until pharmacy can make bag with KCL. Pt has been given 3 L NS, that is great per MD.
[2021-01-25] MEDS ORDERED: temazepam 15mg capsule PO PRN (21:00)
--- NOTE | 2021-01-25 21:00 | NUR ---
Patient in room U 3017. I have received report from Sheri HERRERA and had the opportunity to ask questions and assume patient care. Addendum: 01/26/21 at 0621 by Lindsay Miguel RN from Kelli HERRERA from by telephone
[2021-01-25 21:30] VITALS: BP 133/85
[2021-01-25 23:10] LABS: CLARITY,URINE SLIGHTLY CLOUDY (Clear); COLOR,URINE YELLOW (Yellow); GLUCOSE, URINE >=1000 mg/dl (Neg); KETONES,URINE 40 mg/dl (Neg); LEUKOCYTE ESTERASE ,URINE NEGATIVE (Neg); NITRITES, URINE NEGATIVE (Neg); OCCULT BLOOD,URINE SMALL (Neg); PH,URINE 5.5 (4.8-8.0); PROTEIN,URINE 30 mg/dl (Neg)
[2021-01-25 23:11] LABS: UA COLLECTION TYPE NON-SPECIFIED
[2021-01-25 23:18] LABS: ANION GAP 14 (8-16); BLOOD UREA NITROGEN 16 MG/DL (7-18); CHLORIDE 103 MMOL/L (99-107); GLUCOSE 97 MG/DL (70-104); POTASSIUM 3.3 MMOL/L (3.5-5.1); SODIUM 137 MMOL/L (135-145); TOTAL CARBON DIOXIDE 20.5 MMOL/L (24-32)
[2021-01-25 23:19] LABS: AMORPHOUS URATES 1+; BACTERIA,URINE FEW /HPF (Neg); HYALINE CASTS 0-3 /LPF (NEGATIVE); MUCUS STRANDS FEW /LPF (Neg); RBC,URINE 0-2 /HPF (0-2); SQUAMOUS EPITHELIAL CELL,UR FEW /LPF (FEW); TRANSITIONAL EPI CELLS,URINE FEW /HPF; WBC,URINE 0-4 /HPF (0-4)
[2021-01-25 23:19] LABS: ALBUMIN 3.5 G/DL (3.4-5.0); BUN/CREATININE RATIO 14.5 (5.4-32.0); CALCIUM 9.1 MG/DL (8.5-10.1); eGFR 75 ML/MIN
[2021-01-25 23:23] LABS: PHOSPHORUS 1.1 MG/DL (2.3-4.5)
[2021-01-25] MEDS: sodium phosphate inj. 30 MMOL in dextrose 5%-water 250 ML IV PRN (23:51)
--- NOTE | 2021-01-26 00:23 | NUR ---
PAGER ID: [phone] MESSAGE: [phone] Kapil Pizarro: Critical Phos of 1.1. DKA patient, on D5 .45% NS with 20 K, dropping sugars still. Can I lower the insulin to 3 ml/hr? Lindsay HERRERA [phone]
--- NOTE | 2021-01-26 00:31 | NUR ---
PAGER ID: [phone] MESSAGE: [phone] Kapil Pizarro: DKA patient still dropping sugar (now 85) will change the fluids to D10 .45% NS with 20 K. Lindsay RN [phone]
[2021-01-26] MEDS ORDERED: DEXTROSE 10 % AND 0.45 % NACL 1,000 ML IV SCH (00:50)
[2021-01-26] MEDS: normal saline 1000ml 1,000 ML IV SCH ×6 (01:20→21:20)
[2021-01-26] MEDS: Dextrose 10%-water IV solution 1,000 ML IV SCH ×5 (01:46→23:14)
[2021-01-26 02:00] VITALS: BP 139/72
[2021-01-26 03:33] LABS: ALBUMIN 3.2 G/DL (3.4-5.0); ANION GAP 12 (8-16); BLOOD UREA NITROGEN 16 MG/DL (7-18); BUN/CREATININE RATIO 16.3 (5.4-32.0); CALCIUM 8.5 MG/DL (8.5-10.1); CHLORIDE 104 MMOL/L (99-107); CREATININE 0.98 MG/DL (0.60-1.10); GLUCOSE 151 MG/DL (70-104); MAGNESIUM 1.9 MG/DL (1.5-2.4); PHOSPHORUS 2.6 MG/DL (2.3-4.5); POTASSIUM 3.7 MMOL/L (3.5-5.1); SODIUM 136 MMOL/L (135-145); TOTAL CARBON DIOXIDE 20.2 MMOL/L (24-32); eGFR 85 ML/MIN
[2021-01-26 03:38] LABS: LIPASE 1754 U/L (73-393)
[2021-01-26 06:00] VITALS: BP 124/76
--- NOTE | 2021-01-26 06:05 | NUR ---
Patient in room PCU 3017. I have received report from Lindsay HERRERA and had the opportunity to ask questions and assume patient care.
--- NOTE | 2021-01-26 06:20 | NUR ---
Problems reprioritized. Patient report given, questions answered & plan of care reviewed with Sebastian HERRERA.
[2021-01-26] MEDS: pantoprazole 40mg Tablet.DR PO SCH (07:30)
[2021-01-26] MEDS: heparin, porcine 5000 units/ml vial SQ SCH ×2 (07:41→19:16)
[2021-01-26] MEDS: pantoprazole 40 MG vial IV SCH (07:42)
[2021-01-26] MEDS: K and/or MAG REPLACEMENT MC SCH ×2 (08:00→20:00)
[2021-01-26 10:21] LABS: ALBUMIN 3.2 G/DL (3.4-5.0); ANION GAP 11 (8-16); BLOOD UREA NITROGEN 12 MG/DL (7-18); BUN/CREATININE RATIO 14.8 (5.4-32.0); CALCIUM 8.7 MG/DL (8.5-10.1); CHLORIDE 100 MMOL/L (99-107); CREATININE 0.81 MG/DL (0.60-1.10); GLUCOSE 118 MG/DL (70-104); MAGNESIUM 1.9 MG/DL (1.5-2.4); PHOSPHORUS 1.3 MG/DL (2.3-4.5); SODIUM 132 MMOL/L (135-145); eGFR > 90 ML/MIN
[2021-01-26] MEDS: potassium Cl 20 mEq SR tablet PO PRN ×3 (10:40→21:13)
[2021-01-26 11:00] VITALS: BP 102/66
[2021-01-26 12:33] LABS: ALBUMIN 3.1 G/DL (3.4-5.0); ANION GAP 9 (8-16); BLOOD UREA NITROGEN 10 MG/DL (7-18); BUN/CREATININE RATIO 13.3 (5.4-32.0); CALCIUM 8.7 MG/DL (8.5-10.1); CHLORIDE 101 MMOL/L (99-107); CREATININE 0.75 MG/DL (0.60-1.10); GLUCOSE 103 MG/DL (70-104); SODIUM 132 MMOL/L (135-145); TOTAL CARBON DIOXIDE 22.1 MMOL/L (24-32); eGFR > 90 ML/MIN
[2021-01-26] MEDS: sodium phosphate inj. 30 MMOL in dextrose 5%-water 250 ML IV PRN (12:51)
[2021-01-26] MEDS: LORazepam 1 MG tablet PO PRN ×2 (13:02→20:26)
[2021-01-26] MEDS ORDERED: Insulin Reg/NS 100units/100mL 100 ML IV SCH (13:10)
[2021-01-26 15:00] VITALS: BP 111/75
--- NOTE | 2021-01-26 16:20 | NUR ---
DM Education/Initial: Noted A1c 9.6. RD international relations teacher visited pt at bedside for written and verbal DM and DKA education. Pt arousable to name but asked to continue sleeping. Left written education and RD contact information at bedside and will follow up for verbal education. Pt admit dx DKA related to Type II DM after being unable to get his insulin pump to work correctly. Pt is currently NPO. Last BM 01/24 prior to admit. Pt BMI 17 though current wt is not scaled. Will continue to follow as diet advances. Recommendations: 1) Advance to carb controlled diet as medically indicated 2) Bowel care per rx 3) Scaled wt this admit Addendum: 01/26/21 at [address] Amended: Links added. Addendum: 01/26/21 at [address] I have reviewed and agree with note by Donkey Engine Firer/Fireman. Yazmin Longoria, RD
[2021-01-26 17:20] LABS: ANION GAP 11 (8-16); BLOOD UREA NITROGEN 9 MG/DL (7-18); CALCIUM 8.7 MG/DL (8.5-10.1); CHLORIDE 102 MMOL/L (99-107); CREATININE 0.69 MG/DL (0.60-1.10); GLUCOSE 111 MG/DL (70-104); SODIUM 135 MMOL/L (135-145); eGFR > 90 ML/MIN
[2021-01-26 18:00] VITALS: BP 129/82
--- NOTE | 2021-01-26 18:00 | NUR ---
Patient in room PCU 3017. I have received report from Sebastian HERRERA and had the opportunity to ask questions and assume patient care.
--- NOTE | 2021-01-26 18:15 | NUR ---
Problems reprioritized. Patient report given, questions answered & plan of care reviewed with Lindsay HRERERA and Urmila HERRERA.
--- NOTE | 2021-01-26 18:17 | NUR ---
F/u: Attempted f/u visit with pt at bedside however pt sleeping and did not wake with verbal cues. Will attempt at another time. Addendum: 01/26/21 at [address] Amended: Links added.
--- NOTE | 2021-01-26 18:30 | NUR ---
Patient in room PCU 3017. I have received report from Sebastian HERRERA and had the opportunity to ask questions and assume patient care with Rosio HERRERA.
[2021-01-26] MEDS ORDERED: dextrose 50%-water 50ml dispensing syringe IV STA (19:06)
[2021-01-26 22:00] VITALS: BP 152/91
[2021-01-26 23:40] LABS: ALBUMIN 3.2 G/DL (3.4-5.0); ANION GAP 8 (8-16); BLOOD UREA NITROGEN 7 MG/DL (7-18); BUN/CREATININE RATIO 8.4 (5.4-32.0); CHLORIDE 99 MMOL/L (99-107); CREATININE 0.83 MG/DL (0.60-1.10); GLUCOSE 314 MG/DL (70-104); POTASSIUM 3.5 MMOL/L (3.5-5.1); SODIUM 132 MMOL/L (135-145); TOTAL CARBON DIOXIDE 24.8 MMOL/L (24-32); eGFR > 90 ML/MIN
[2021-01-27] MEDS: potassium Cl 20 mEq SR tablet PO PRN ×2 (01:01→04:54)
[2021-01-27] MEDS: normal saline 1000ml 1,000 ML IV SCH ×5 (01:20→15:52)
[2021-01-27 02:00] VITALS: BP 132/86
[2021-01-27] MEDS ORDERED: dextrose 50%-water 50ml dispensing syringe IV PRN ×2 (02:25)
--- NOTE | 2021-01-27 03:39 | NUR ---
Patient found soaked in bed with PIV pulled out and D10 water still running. Patient did not realize the PIV had been pulled out. Hourly BGL found to be 73 and insulin still running at 3 units/hour. Insulin decreased 1 unit/mL. 25mL of Dextrose 50% given. BGL was remeasured and found to be 140. D10 water restarted on left upper arm IV site.
[2021-01-27 04:14] LABS: ALBUMIN 3.3 G/DL (3.4-5.0); ANION GAP 7 (8-16); BLOOD UREA NITROGEN 5 MG/DL (7-18); BUN/CREATININE RATIO 5.6 (5.4-32.0); CALCIUM 9.1 MG/DL (8.5-10.1); CHLORIDE 101 MMOL/L (99-107); CREATININE 0.89 MG/DL (0.60-1.10); GLUCOSE 122 MG/DL (70-104); LIPASE 453 U/L (73-393); MAGNESIUM 1.9 MG/DL (1.5-2.4); SODIUM 134 MMOL/L (135-145); TOTAL CARBON DIOXIDE 26.5 MMOL/L (24-32); eGFR > 90 ML/MIN
[2021-01-27 04:23] LABS: BASOPHILS % (AUTO) 0.7 % (0-1); EOSINOPHILS # (AUTO) 0.3 X10'3 (0-0.9); EOSINOPHILS % (AUTO) 6.2 % (0-6); HEMATOCRIT 39.4 % (42.0-52.0); HEMOGLOBIN 13.5 g/dl (14.0-17.9); LYMPHOCYTES % (AUTO) 21.7 % (21-51); MEAN CORPUSCULAR HEMOGLOBIN 34.7 PG (27.0-31.0); MEAN CORPUSCULAR HGB CONC 34.3 g/dL (33.0-36.5); MEAN CORPUSCULAR VOLUME 101.2 FL (78-98); MEAN PLATELET VOLUME 8.9 FL (7.4-10.4); MONOCYTES # (AUTO) 0.4 X10'3 (0-0.9); MONOCYTES % (AUTO) 9.7 % (2-12); NEUTROPHILS # (AUTO) 2.7 X10'3 (1.8-7.7); NEUTROPHILS % (AUTO) 61.7 % (42-75); PLATELET COUNT 177 X10'3 (140-440); RED CELL DISTRIBUTION WIDTH 13.2 % (11.5-14.5); WHITE BLOOD COUNT 4.4 X10'3 (4.5-11.0)
[2021-01-27 06:00] VITALS: BP 116/80
--- NOTE | 2021-01-27 06:10 | NUR ---
Patient in room PCU 3017. I have received report from Kesha HERRERA and Urmila HERRERA and had the opportunity to ask questions and assume patient care.
--- NOTE | 2021-01-27 06:12 | NUR ---
Problems reprioritized. Patient report given, questions answered & plan of care reviewed with Sebastian HERRERA.
--- NOTE | 2021-01-27 06:12 | NUR ---
Orientee documentation: I have reviewed and agree with all medications, interventions, assessments performed and documented by Urmila HERRERA.
--- NOTE | 2021-01-27 06:12 | NUR ---
Problems reprioritized. Patient report given, questions answered & plan of care reviewed with Sebastian HERRERA.
[2021-01-27] MEDS: pantoprazole 40mg Tablet.DR PO SCH (07:56)
[2021-01-27] MEDS: heparin, porcine 5000 units/ml vial SQ SCH ×2 (07:57→19:19)
[2021-01-27] MEDS: K and/or MAG REPLACEMENT MC SCH ×2 (08:00→19:34)
[2021-01-27] MEDS: Dextrose 10%-water IV solution 1,000 ML IV SCH (08:01)
[2021-01-27 11:00] VITALS: BP 118/80
[2021-01-27] MEDS ORDERED: MESSAGE TO PHARMACY PO ONE (12:35)
[2021-01-27] MEDS: insulin Lispro (HumaLOG) vial - multi-dose SQ SCH ×2 (13:14→19:28)
[2021-01-27] MEDS: LORazepam 1 MG tablet PO PRN ×3 (13:29→23:33)
--- NOTE | 2021-01-27 13:42 | NUR ---
PAGER ID: [phone] MESSAGE: Re: Kapil Pizarro. Room: 301. Pt requesting nicotine patch. Can I put order in for 14mg patch? -Sebastian [facility] #[id number] -Dr. Gannon paged concerning nicotine patch for Pt.
[2021-01-27 14:04] LABS: ALBUMIN 3.1 G/DL (3.4-5.0); ANION GAP 9 (8-16); BLOOD UREA NITROGEN 4 MG/DL (7-18); BUN/CREATININE RATIO 4.7 (5.4-32.0); CALCIUM 8.9 MG/DL (8.5-10.1); CHLORIDE 102 MMOL/L (99-107); CREATININE 0.86 MG/DL (0.60-1.10); GLUCOSE 140 MG/DL (70-104); POTASSIUM 3.6 MMOL/L (3.5-5.1); SODIUM 134 MMOL/L (135-145); TOTAL CARBON DIOXIDE 22.9 MMOL/L (24-32); eGFR > 90 ML/MIN
--- NOTE | 2021-01-27 14:21 | NUR ---
3 units humalog administered sub after Pt was finished eating. Insulin drip turned off 1 hour after sub q administration at 1415. Will continue to monitor Pt as needed.
[2021-01-27 15:00] VITALS: BP 127/83
--- NOTE | 2021-01-27 15:24 | NUR ---
PAGER ID: [phone] MESSAGE: Re: Kapil Pizarro. Room: 301. Insulin drip turned off. Do you want other fluids running now? -Sebastian PCU #[id number] -Dr. Gannon paged concerning fluid orders for Pt.
[2021-01-27] MEDS: nicotine 14mg patch - 24hr TD SCH (15:50)
[2021-01-27 18:00] VITALS: BP 152/99
--- NOTE | 2021-01-27 18:36 | NUR ---
Problems reprioritized. Patient report given, questions answered & plan of care reviewed with Velia HERRERA.
[2021-01-27] MEDS: insulin glargine (Lantus) pen - multi-dose SQ SCH (20:53)
[2021-01-27 22:00] VITALS: BP 131/92
[2021-01-28] MEDS: normal saline 1000ml 1,000 ML IV SCH ×3 (01:40→19:57)
[2021-01-28] MEDS: LORazepam 1 MG tablet PO PRN ×4 (01:47→23:42)
[2021-01-28 02:00] VITALS: BP 121/79
[2021-01-28 06:00] VITALS: BP 147/93
--- NOTE | 2021-01-28 06:12 | NUR ---
Problems reprioritized. Patient report given, questions answered & plan of care reviewed with Areli HERRERA.
--- NOTE | 2021-01-28 06:13 | NUR ---
Patient in room PCU 3017. I have received report from Velia HERRERA and had the opportunity to ask questions and assume patient care.
[2021-01-28 07:40] LABS: ALBUMIN 2.9 G/DL (3.4-5.0); ANION GAP 7 (8-16); BLOOD UREA NITROGEN 6 MG/DL (7-18); BUN/CREATININE RATIO 8.8 (5.4-32.0); CALCIUM 9.1 MG/DL (8.5-10.1); CHLORIDE 103 MMOL/L (99-107); CREATININE 0.68 MG/DL (0.60-1.10); GLUCOSE 154 MG/DL (70-104); LIPASE 704 U/L (73-393); MAGNESIUM 1.7 MG/DL (1.5-2.4); POTASSIUM 3.4 MMOL/L (3.5-5.1); SODIUM 136 MMOL/L (135-145); TOTAL CARBON DIOXIDE 26.3 MMOL/L (24-32); eGFR > 90 ML/MIN
[2021-01-28 07:41] LABS: BASOPHILS % (AUTO) 0.8 % (0-1); EOSINOPHILS # (AUTO) 0.2 X10'3 (0-0.9); EOSINOPHILS % (AUTO) 6.1 % (0-6); HEMATOCRIT 32.9 % (42.0-52.0); HEMOGLOBIN 11.6 g/dl (14.0-17.9); LYMPHOCYTES # (AUTO) 1.4 X10'3 (1.1-4.8); LYMPHOCYTES % (AUTO) 37.3 % (21-51); MEAN CORPUSCULAR HEMOGLOBIN 35.1 PG (27.0-31.0); MEAN CORPUSCULAR HGB CONC 35.2 g/dL (33.0-36.5); MEAN CORPUSCULAR VOLUME 99.7 FL (78-98); MEAN PLATELET VOLUME 8.1 FL (7.4-10.4); MONOCYTES # (AUTO) 0.4 X10'3 (0-0.9); NEUTROPHILS # (AUTO) 1.7 X10'3 (1.8-7.7); NEUTROPHILS % (AUTO) 44.8 % (42-75); PLATELET COUNT 197 X10'3 (140-440); RED CELL DISTRIBUTION WIDTH 12.8 % (11.5-14.5); WHITE BLOOD COUNT 3.7 X10'3 (4.5-11.0)
[2021-01-28] MEDS: pantoprazole 40mg Tablet.DR PO SCH (08:13)
[2021-01-28] MEDS: nicotine 14mg patch - 24hr TD SCH (08:14)
[2021-01-28] MEDS: heparin, porcine 5000 units/ml vial SQ SCH ×2 (08:14→19:49)
[2021-01-28] MEDS: K and/or MAG REPLACEMENT MC SCH ×2 (08:14→20:02)
[2021-01-28] MEDS: potassium Cl 20 mEq SR tablet PO PRN ×2 (08:15→13:34)
[2021-01-28] MEDS: insulin Lispro (HumaLOG) vial - multi-dose SQ SCH ×3 (08:18→19:56)
[2021-01-28] MEDS ORDERED: LORazepam 2 mg/ml vial IV PRN (09:20)
[2021-01-28 11:00] VITALS: BP 135/90
--- NOTE | 2021-01-28 13:09 | NUR ---
F/u 01/28: Pt seen by PATRICK and declines further DM ed at this time; PATRICK encouraged pt to contact dietitian's office if further questions/concerns. PATRICK d/w RN regarding routine thiamin, folic, MVI if MD agreeable given etoh hx .5 pint rum/day per EMR. Addendum: 01/28/21 at [address] Amended: Links added.
[2021-01-28 15:00] VITALS: BP 108/62
[2021-01-28] MEDS: HYDROcodone/acetaminophen 5mg/325mg tablet PO PRN ×2 (16:11→21:38)
[2021-01-28] MEDS ORDERED: potassium Cl 40MEQ/1/2NS 520ml 520 ML IV PRN ×2 (17:35)
[2021-01-28] MEDS ORDERED: potassium Cl 20 mEq SR tablet PO PRN ×2 (17:35)
[2021-01-28 18:00] VITALS: BP 141/92
--- NOTE | 2021-01-28 18:31 | NUR ---
Problems reprioritized. Patient report given, questions answered & plan of care reviewed with Velia HERRERA.
[2021-01-28] MEDS: insulin glargine (Lantus) pen - multi-dose SQ SCH (21:49)
[2021-01-28 22:00] VITALS: BP 122/79
[2021-01-29 02:00] VITALS: BP 132/85
[2021-01-29] MEDS: normal saline 1000ml 1,000 ML IV SCH ×4 (03:05→22:03)
--- NOTE | 2021-01-29 06:24 | NUR ---
Problems reprioritized. Patient report given, questions answered & plan of care reviewed with Areli HERRERA.
[2021-01-29 07:00] VITALS: BP 139/89
[2021-01-29] MEDS: K and/or MAG REPLACEMENT MC SCH ×2 (08:00→20:00)
[2021-01-29 08:27] LABS: MAGNESIUM 1.9 MG/DL (1.5-2.4)
[2021-01-29] MEDS: pantoprazole 40mg Tablet.DR PO SCH (08:57)
[2021-01-29] MEDS: nicotine 14mg patch - 24hr TD SCH (08:57)
[2021-01-29] MEDS: heparin, porcine 5000 units/ml vial SQ SCH ×2 (08:58→19:12)
[2021-01-29] MEDS: LORazepam 1 MG tablet PO PRN ×3 (08:58→19:11)
[2021-01-29] MEDS: HYDROcodone/acetaminophen 5mg/325mg tablet PO PRN ×4 (08:59→23:48)
[2021-01-29 09:15] LABS: EOSINOPHILS # (AUTO) 0.2 X10'3 (0-0.9); EOSINOPHILS % (AUTO) 5.9 % (0-6); HEMATOCRIT 35.5 % (42.0-52.0); HEMOGLOBIN 12.4 g/dl (14.0-17.9); LYMPHOCYTES # (AUTO) 1.1 X10'3 (1.1-4.8); LYMPHOCYTES % (AUTO) 34.2 % (21-51); MEAN CORPUSCULAR VOLUME 99.9 FL (78-98); MEAN PLATELET VOLUME 7.2 FL (7.4-10.4); MONOCYTES # (AUTO) 0.5 X10'3 (0-0.9); MONOCYTES % (AUTO) 14.1 % (2-12); NEUTROPHILS # (AUTO) 1.5 X10'3 (1.8-7.7); NEUTROPHILS % (AUTO) 44.8 % (42-75); PLATELET COUNT 244 X10'3 (140-440); RED BLOOD COUNT 3.55 X10'6 (4.70-6.10); WHITE BLOOD COUNT 3.3 X10'3 (4.5-11.0)
[2021-01-29 09:23] LABS: CHLORIDE 102 MMOL/L (99-107); GLUCOSE 217 MG/DL (70-104); POTASSIUM 4.1 MMOL/L (3.5-5.1); SODIUM 136 MMOL/L (135-145); TOTAL CARBON DIOXIDE 28.5 MMOL/L (24-32)
[2021-01-29 09:24] LABS: ALBUMIN 3.3 G/DL (3.4-5.0); ANION GAP 6 (8-16); BLOOD UREA NITROGEN 4 MG/DL (7-18); BUN/CREATININE RATIO 4.9 (5.4-32.0); CALCIUM 9.3 MG/DL (8.5-10.1); CREATININE 0.81 MG/DL (0.60-1.10); eGFR > 90 ML/MIN
[2021-01-29 11:00] VITALS: BP 142/91
[2021-01-29] MEDS ORDERED: iohexol 300mg/ml 100ml inj. ONE (12:01)
[2021-01-29] MEDS: insulin Lispro (HumaLOG) vial - multi-dose SQ SCH ×3 (13:06→21:58)
[2021-01-29 15:00] VITALS: BP 135/91
--- NOTE | 2021-01-29 18:30 | NUR ---
Patient in room PCU 3017. I have received report from Areli HERRERA and had the opportunity to ask questions and assume patient care.
--- NOTE | 2021-01-29 18:30 | NUR ---
Patient in room PCU 3014. I have received report from SHARON Singleton and had the opportunity to ask questions and assume patient care.
--- NOTE | 2021-01-29 18:36 | NUR ---
Problems reprioritized. Patient report given, questions answered & plan of care reviewed with Janet HERRERA.
[2021-01-29 19:00] VITALS: BP 130/90
[2021-01-29] MEDS: insulin glargine (Lantus) pen - multi-dose SQ SCH (22:01)
[2021-01-30] MEDS: LORazepam 1 MG tablet PO PRN ×3 (02:27→16:15)
[2021-01-30] MEDS: normal saline 1000ml 1,000 ML IV SCH ×2 (05:54→16:15)
--- NOTE | 2021-01-30 06:17 | NUR ---
Patient in room PCU 3017. I have received report from Janet HERRERA and had the opportunity to ask questions and assume patient care.
--- NOTE | 2021-01-30 06:20 | NUR ---
Problems reprioritized. Patient report given, questions answered & plan of care reviewed with Areli HERRERA.
--- NOTE | 2021-01-30 06:20 | NUR ---
Problems reprioritized. Patient report given, questions answered & plan of care reviewed with SHARON Singleton.
[2021-01-30 07:00] VITALS: BP 136/85
[2021-01-30 07:26] LABS: BASOPHILS % (AUTO) 0.3 % (0-1); EOSINOPHILS # (AUTO) 0.2 X10'3 (0-0.9); EOSINOPHILS % (AUTO) 5.8 % (0-6); HEMATOCRIT 32.4 % (42.0-52.0); HEMOGLOBIN 11.4 g/dl (14.0-17.9); LYMPHOCYTES # (AUTO) 1.6 X10'3 (1.1-4.8); LYMPHOCYTES % (AUTO) 43.2 % (21-51); MEAN CORPUSCULAR HEMOGLOBIN 34.9 PG (27.0-31.0); MEAN CORPUSCULAR VOLUME 99.7 FL (78-98); MEAN PLATELET VOLUME 8.1 FL (7.4-10.4); MONOCYTES # (AUTO) 0.6 X10'3 (0-0.9); MONOCYTES % (AUTO) 16.2 % (2-12); NEUTROPHILS # (AUTO) 1.3 X10'3 (1.8-7.7); NEUTROPHILS % (AUTO) 34.5 % (42-75); PLATELET COUNT 260 X10'3 (140-440); RED BLOOD COUNT 3.25 X10'6 (4.70-6.10); RED CELL DISTRIBUTION WIDTH 12.4 % (11.5-14.5); WHITE BLOOD COUNT 3.7 X10'3 (4.5-11.0)
[2021-01-30] MEDS: pantoprazole 40mg Tablet.DR PO SCH (07:30)
[2021-01-30 07:50] LABS: ALBUMIN 3.1 G/DL (3.4-5.0); ANION GAP 8 (8-16); BLOOD UREA NITROGEN 6 MG/DL (7-18); BUN/CREATININE RATIO 8.5 (5.4-32.0); CALCIUM 9.4 MG/DL (8.5-10.1); CHLORIDE 105 MMOL/L (99-107); CREATININE 0.71 MG/DL (0.60-1.10); GLUCOSE 81 MG/DL (70-104); LIPASE 926 U/L (73-393); MAGNESIUM 1.7 MG/DL (1.5-2.4); POTASSIUM 3.8 MMOL/L (3.5-5.1); SODIUM 140 MMOL/L (135-145); TOTAL CARBON DIOXIDE 26.9 MMOL/L (24-32); eGFR > 90 ML/MIN
[2021-01-30] MEDS: heparin, porcine 5000 units/ml vial SQ SCH ×2 (08:00→20:00)
[2021-01-30] MEDS: K and/or MAG REPLACEMENT MC SCH ×2 (08:00→20:00)
[2021-01-30] MEDS: nicotine 14mg patch - 24hr TD SCH (08:53)
[2021-01-30] MEDS: HYDROcodone/acetaminophen 5mg/325mg tablet PO PRN ×3 (08:54→20:02)
[2021-01-30] MEDS: insulin Lispro (HumaLOG) vial - multi-dose SQ SCH ×3 (09:04→18:59)
[2021-01-30 09:29] LABS: PLATELET ESTIMATE NORMAL; TOTAL CELLS COUNTED 100
[2021-01-30 09:30] LABS: STOMATOCYTES 1+
[2021-01-30 09:31] LABS: HYPOCHROMASIA 1+
[2021-01-30 11:00] VITALS: BP 123/78
[2021-01-30 15:00] VITALS: BP 118/57
--- NOTE | 2021-01-30 15:12 | NUR ---
Reassessment: Pt diet changed to carb controlled low fat diet today. Pt on previous diet of full liquids PO intake avg 100%. Pending PO on new diet order at lunch today to determine if needs are being met. Estimating needs below using IBW pending scaled wt this admit. PATRICK paged regarding routine folate, Thiamine and MVI given EtOH hx if agreeable. Last BM 01/30. Will continue to follow. Recommendations: 1) Continue Carb Controlled, Low fat diet 2) Thiamine, Folic acid, MVI for EtOH hx, if MD agreeable. 3) Bowel care per rx 4) Scaled wt this admit Addendum: 01/30/21 at [address] Amended: Links added. Addendum: 01/30/21 at [address] PATRICK agrees w/ above creative services intern note.
[2021-01-30] MEDS ORDERED: folic acid 1mg tablet PO ONE (15:20)
[2021-01-30 18:00] VITALS: BP 158/99
--- NOTE | 2021-01-30 18:19 | NUR ---
Problems reprioritized. Patient report given, questions answered & plan of care reviewed with Manuel RN.
--- NOTE | 2021-01-30 18:20 | NUR ---
Patient in room PCU 3017. I have received report from Areli and had the opportunity to ask questions and assume patient care.
[2021-01-30] MEDS: thiamine 100mg tablet PO SCH (20:03)
[2021-01-30 22:00] VITALS: BP 138/90
[2021-01-30] MEDS: insulin glargine (Lantus) pen - multi-dose SQ SCH (22:01)
[2021-01-31] MEDS: LORazepam 1 MG tablet PO PRN (01:44)
[2021-01-31] MEDS: normal saline 1000ml 1,000 ML IV SCH ×2 (01:45→11:05)
[2021-01-31 02:00] VITALS: BP 132/93
--- NOTE | 2021-01-31 06:27 | NUR ---
Problems reprioritized. Patient report given, questions answered & plan of care reviewed with Eve.
[2021-01-31 07:10] VITALS: BP 139/83
[2021-01-31 07:13] LABS: BASOPHILS # (AUTO) 0.1 X10'3 (0-0.2); BASOPHILS % (AUTO) 1.3 % (0-1); EOSINOPHILS # (AUTO) 0.2 X10'3 (0-0.9); EOSINOPHILS % (AUTO) 4.3 % (0-6); HEMATOCRIT 30.9 % (42.0-52.0); LYMPHOCYTES # (AUTO) 1.6 X10'3 (1.1-4.8); LYMPHOCYTES % (AUTO) 37.7 % (21-51); MEAN CORPUSCULAR HGB CONC 35.6 g/dL (33.0-36.5); MEAN CORPUSCULAR VOLUME 98.4 FL (78-98); MEAN PLATELET VOLUME 7.3 FL (7.4-10.4); MONOCYTES # (AUTO) 0.9 X10'3 (0-0.9); MONOCYTES % (AUTO) 20.2 % (2-12); NEUTROPHILS # (AUTO) 1.6 X10'3 (1.8-7.7); NEUTROPHILS % (AUTO) 36.5 % (42-75); PLATELET COUNT 293 X10'3 (140-440); RED BLOOD COUNT 3.15 X10'6 (4.70-6.10); RED CELL DISTRIBUTION WIDTH 12.8 % (11.5-14.5); WHITE BLOOD COUNT 4.3 X10'3 (4.5-11.0)
[2021-01-31 07:20] LABS: ALBUMIN 3.1 G/DL (3.4-5.0); ANION GAP 8 (8-16); BLOOD UREA NITROGEN 7 MG/DL (7-18); CALCIUM 9.2 MG/DL (8.5-10.1); CHLORIDE 105 MMOL/L (99-107); GLUCOSE 175 MG/DL (70-104); MAGNESIUM 1.7 MG/DL (1.5-2.4); POTASSIUM 3.6 MMOL/L (3.5-5.1); SODIUM 141 MMOL/L (135-145); TOTAL CARBON DIOXIDE 27.6 MMOL/L (24-32); eGFR > 90 ML/MIN
[2021-01-31] MEDS: pantoprazole 40mg Tablet.DR PO SCH (07:35)
[2021-01-31] MEDS: nicotine 14mg patch - 24hr TD SCH (07:35)
[2021-01-31] MEDS: thiamine 100mg tablet PO SCH (07:35)
[2021-01-31] MEDS: heparin, porcine 5000 units/ml vial SQ SCH (07:35)
[2021-01-31] MEDS ORDERED: folic acid 1mg tablet PO SCH (08:00)
[2021-01-31] MEDS ORDERED: multivitamins, therapeutics tablet PO SCH (08:00)
[2021-01-31] MEDS: K and/or MAG REPLACEMENT MC SCH (08:00)
[2021-01-31 09:05] LABS: PLATELET ESTIMATE NORMAL; TOTAL CELLS COUNTED 100
[2021-01-31] MEDS: insulin Lispro (HumaLOG) vial - multi-dose SQ SCH (09:17)
[2021-01-31 09:19] LABS: LIPASE 1658 U/L (73-393)
[2021-01-31] MEDS ORDERED: NICO-631 TD (10:23)
[2021-01-31] MEDS ORDERED: MULT-25 PO (10:23)
[2021-01-31] MEDS ORDERED: FOLI0.8C PO (10:23)
[2021-01-31] MEDS ORDERED: THIA100T66 PO (10:23)
[2021-01-31] MEDS: HYDROcodone/acetaminophen 5mg/325mg tablet PO PRN (11:16)
[2021-01-31 11:38] VITALS: BP 129/82
--- NOTE | 2021-02-01 14:58 | NUR ---
CASE MANAGEMENT DISCHARGE FOLLOW UP: T/c to pt, no answer, left message requesting callback.
== END 2021-01-31 11:35 | disposition home or self-care (01) | DRG 282 ==
LOC: ER 16:18 → ED HOLD 17:15 → PCU 3S 20:35
PROVIDERS: ADMIT Internal Medicine; ATTEND Internal Medicine
PROC: BW211ZZ Computerized Tomography (CT Scan) of Abdomen and Pelvis using Low Osmolar Contrast (ICD-10-PCS; principal; 2021-01-29)
DX: K85.90 Acute pancreatitis without necrosis or infection, unspecified (principal); N17.0 Acute kidney failure with tubular necrosis; K22.10 Ulcer of esophagus without bleeding; E11.10 Type 2 diabetes mellitus with ketoacidosis without coma; N18.30 Chronic kidney disease, stage 3 unspecified; E87.1 Hypo-osmolality and hyponatremia; E87.6 Hypokalemia; F10.239 Alcohol dependence with withdrawal, unspecified; E11.22 Type 2 diabetes mellitus with diabetic chronic kidney disease; F15.90 Other stimulant use, unspecified, uncomplicated; Z96.41 Presence of insulin pump (external) (internal); F17.210 Nicotine dependence, cigarettes, uncomplicated; Z79.4 Long term (current) use of insulin; Z79.899 Other long term (current) drug therapy
CPT/HCPCS: 36415; 36600; 74177; 80048; 80053; 81001; 82803; 82948; 83036; 83605; 83690; 83735; 84100; 84484; 85007; 85018; 85025; 85610; 85730; 87040; 87081; 93005; 93306; 97110; 97116; 97161; 97530; 99285; C9113; G0378; J1644; J1815; J2060; J3480; J7030; J7060; Q9967

== ENCOUNTER 2021-12-18 18:11 | Inpatient (IN) | payer MEDICAID ==
[~2021-12-18] VITALS: Ht 172.7 cm; Wt 72.7 kg
[~2021-12-18 18:11] MED LIST changes: -CHLO25CA10 PO; +FOLI0.8C PO; -INSU100C4 SQ; +INSULIN PUMP; +MULT-25 PO; +NICO-631 TD; +OMEP40CA21 PO; +SUCR1TAB PO; +THIA100T66 PO
[2021-12-18] MEDS ORDERED: Insulin Reg/NS 100units/100mL 100 ML IV SCH ×3 (18:20→21:55)
[2021-12-18] MEDS ORDERED: potassium Cl 20 mEq SR tablet PO PRN ×4 (18:20→21:50)
[2021-12-18] MEDS ORDERED: potassium Cl 40MEQ/1/2NS 520ml 520 ML IV PRN ×2 (18:20)
[2021-12-18] MEDS ORDERED: sodium phosphate inj. 30 MMOL in dextrose 5%-water 250 ML IV PRN (18:20)
[2021-12-18] MEDS ORDERED: potassium CL 20mEq in D5-1/2NS 1,000 ML IV PRN ×2 (18:20→21:55)
[2021-12-18] MEDS ORDERED: sodium phosphate inj. 15 MMOL in dextrose 5%-water 250 ML IV PRN (18:20)
[2021-12-18] MEDS ORDERED: insulin regular, human U-100 3ml vial - multi-dose IV PRN (18:20)
[2021-12-18] MEDS: normal saline 1000ml 1,000 ML IV SCH ×4 (18:20→22:20)
[2021-12-18 18:56] LABS: BASOPHILS % (AUTO) 0.2 % (0-1); EOSINOPHILS % (AUTO) 0 % (0-6); HEMATOCRIT 34.8 % (42.0-52.0); LYMPHOCYTES # (AUTO) 1.4 X10'3 (1.1-4.8); LYMPHOCYTES % (AUTO) 13.5 % (21-51); MEAN CORPUSCULAR HEMOGLOBIN 31.5 PG (27.0-31.0); MEAN CORPUSCULAR HGB CONC 34.6 g/dL (33.0-36.5); MEAN PLATELET VOLUME 7.1 FL (7.4-10.4); MONOCYTES # (AUTO) 0.7 X10'3 (0-0.9); MONOCYTES % (AUTO) 6.9 % (2-12); NEUTROPHILS # (AUTO) 8.1 X10'3 (1.8-7.7); NEUTROPHILS % (AUTO) 79.4 % (42-75); PLATELET COUNT 343 X10'3 (140-440); RED BLOOD COUNT 3.82 X10'6 (4.70-6.10); RED CELL DISTRIBUTION WIDTH 12.9 % (11.5-14.5); WHITE BLOOD COUNT 10.3 X10'3 (4.5-11.0)
[2021-12-18] MEDS ORDERED: diphenhydrAMINE 50 mg/ml inj IV ONE (19:00)
[2021-12-18] MEDS ORDERED: metoclopramide 5 mg/ml inj IV ONE (19:00)
[2021-12-18] MEDS ORDERED: LORazepam 2 mg/ml vial IV ONE (19:05)
[2021-12-18 19:35] LABS: ALANINE AMINOTRANSFERASE 25 U/L (12-78); ALBUMIN 3.4 G/DL (3.4-5.0); ALBUMIN/GLOBULIN RATIO 1.1 (1.1-1.5); ALKALINE PHOSPHATASE 127 IU/L (46-116); ANION GAP 23 (8-16); ASPARTATE AMINO TRANSFERASE 23 U/L (10-37); BILIRUBIN,TOTAL 0.5 MG/DL (0.1-1.0); BLOOD UREA NITROGEN 31 MG/DL (7-18); BUN/CREATININE RATIO 25.8 (5.4-32.0); CALCIUM 8.4 MG/DL (8.5-10.1); CHLORIDE 90 MMOL/L (99-107); ETHANOL 0.119 GM/DL (0.0-0.010); GLUCOSE 292 MG/DL (70-104); LIPASE < 50 U/L (73-393); PHOSPHORUS 2.2 MG/DL (2.3-4.5); POTASSIUM 5.5 MMOL/L (3.5-5.1); SODIUM 126 MMOL/L (135-145); TOTAL PROTEIN 6.4 G/DL (6.4-8.2); eGFR 67 ML/MIN
[2021-12-18 19:42] LABS: TOTAL CARBON DIOXIDE 13.5 MMOL/L (24-32)
[2021-12-18] MEDS ORDERED: insulin regular, human 10 units/0.1 ml syringe SQ ONE (19:45)
[2021-12-18] MEDS ORDERED: K and/or MAG REPLACEMENT MC SCH (20:00)
[2021-12-18] MEDS: dextrose 5%-1/2 normal saline 1,000 ML IV SCH ×2 (21:00→22:29)
[2021-12-18] MEDS ORDERED: etomidate 2mg/ml inj. IV ONE (21:20)
[2021-12-18] MEDS ORDERED: magnesium 2GM in 50ml NS 50 ML IV PRN (21:50)
[2021-12-18] MEDS ORDERED: magnesium 4gm in 100ml NS 100 ML IV PRN (21:50)
[2021-12-18] MEDS ORDERED: magnesium hydroxide 30ml (MOM) UD suspension PO PRN (21:50)
[2021-12-18] MEDS ORDERED: potassium CL 10mEq/100ml bag 100 ML IV PRN (21:50)
[2021-12-18] MEDS ORDERED: magnesium Cl slow-release 64mg tablet PO PRN (21:50)
[2021-12-18] MEDS ORDERED: acetaminophen 325mg tablet PO PRN (21:50)
[2021-12-18] MEDS ORDERED: ondansetron/PF 4mg/2ml inj IV PRN (21:50)
[2021-12-18] MEDS ORDERED: mag hydrox/Alum hydrox/simeth 30ml oral suspension PO PRN (21:50)
[2021-12-18] MEDS ORDERED: AMLO5TAB16 PO (22:24)
[2021-12-18] MEDS ORDERED: METH-798 PO (22:24)
[2021-12-18] MEDS ORDERED: HYDR20TA24 PO (22:24)
[2021-12-18] MEDS ORDERED: TRAZ-251 PO (22:24)
[2021-12-18] MEDS ORDERED: INSU100V9 SQ ×2 (22:24→22:42)
[2021-12-18] MEDS ORDERED: MIDO10TA PO (22:24)
[2021-12-18] MEDS ORDERED: HYDR-4318 PO (22:24)
[2021-12-18] MEDS ORDERED: INSU100V43 SQ (22:24)
[2021-12-18] MEDS ORDERED: GABA-530 PO ×2 (22:24→22:41)
--- NOTE | 2021-12-18 22:32 | NUR ---
PT PLACED ON D5 1/2 NS AT 150 WHEN BG TESTED 225. DRIP TITRATED UP TO 200 WHEN BG WAS 202. PT CONTINUING ON INSULIN DRIP AT 5
[2021-12-18] MEDS ORDERED: GABA-534 PO (22:41)
[2021-12-18] MEDS ORDERED: traZODone 50mg tablet PO PRN (22:55)
[2021-12-18] MEDS: Neutra Phos packet PO PRN (23:59)
[2021-12-19 00:47] LABS: ALBUMIN 2.9 G/DL (3.4-5.0); ANION GAP 12 (8-16); BLOOD UREA NITROGEN 23 MG/DL (7-18); BUN/CREATININE RATIO 21.5 (5.4-32.0); CALCIUM 7.9 MG/DL (8.5-10.1); CHLORIDE 100 MMOL/L (99-107); CREATININE 1.07 MG/DL (0.60-1.10); GLUCOSE 99 MG/DL (70-104); MAGNESIUM 1.7 MG/DL (1.5-2.4); SODIUM 132 MMOL/L (135-145); TOTAL CARBON DIOXIDE 20.2 MMOL/L (24-32); eGFR 77 ML/MIN
[2021-12-19 00:58] LABS: POTASSIUM 4.3 MMOL/L (3.5-5.1)
[2021-12-19] MEDS: dextrose 5%-1/2 normal saline 1,000 ML IV SCH ×3 (01:46→10:19)
[2021-12-19] MEDS: normal saline 1000ml 1,000 ML IV SCH ×7 (01:47→11:59)
--- NOTE | 2021-12-19 01:47 | NUR ---
PTS BG WAS 72, NOTIFIED DR MORALES, LOWERED INSULIN DRIP TO 2ML/HR, CONTINUES ON D5W 0.45% ns @ 250ML/HR. GAVE PT A JUICE AND ENCOURGAED TO EAT A SANDWICH. PT HAD 600MLS URINE OUTPUT.
[2021-12-19 02:02] LABS: BASOPHILS % (AUTO) 0.1 % (0-1); EOSINOPHILS % (AUTO) 0.4 % (0-6); HEMATOCRIT 28.2 % (42.0-52.0); HEMOGLOBIN 9.8 g/dl (14.0-17.9); LYMPHOCYTES # (AUTO) 1.6 X10'3 (1.1-4.8); LYMPHOCYTES % (AUTO) 16.1 % (21-51); MEAN CORPUSCULAR HEMOGLOBIN 31.3 PG (27.0-31.0); MEAN CORPUSCULAR HGB CONC 34.8 g/dL (33.0-36.5); MEAN CORPUSCULAR VOLUME 89.7 FL (78-98); MONOCYTES # (AUTO) 1.1 X10'3 (0-0.9); MONOCYTES % (AUTO) 10.5 % (2-12); NEUTROPHILS # (AUTO) 7.3 X10'3 (1.8-7.7); NEUTROPHILS % (AUTO) 72.9 % (42-75); PLATELET COUNT 255 X10'3 (140-440); RED BLOOD COUNT 3.15 X10'6 (4.70-6.10); WHITE BLOOD COUNT 10.1 X10'3 (4.5-11.0)
[2021-12-19 02:10] LABS: URINE AMPHETAMINE SCREEN NEGATIVE (Neg); URINE BARBITUATE SCREEN NEGATIVE (Neg); URINE BENZODIAZEPINES SCREEN NEGATIVE (Neg); URINE CANNABINOID SCREEN NEGATIVE (Neg); URINE COCAINE SCREEN NEGATIVE (Neg); URINE METHADONE SCREEN NEGATIVE (Neg); URINE OPIATE SCREEN NEGATIVE (Neg); URINE PHENCYCLIDINE SCREEN NEGATIVE (Neg)
[2021-12-19 02:14] LABS: ALANINE AMINOTRANSFERASE 21 U/L (12-78); ALBUMIN 2.9 G/DL (3.4-5.0); ALBUMIN/GLOBULIN RATIO 1.2 (1.1-1.5); ALKALINE PHOSPHATASE 98 IU/L (46-116); ANION GAP 8 (8-16); ASPARTATE AMINO TRANSFERASE 21 U/L (10-37); BILIRUBIN,TOTAL 0.4 MG/DL (0.1-1.0); BLOOD UREA NITROGEN 21 MG/DL (7-18); BUN/CREATININE RATIO 17.9 (5.4-32.0); CALCIUM 8.2 MG/DL (8.5-10.1); CHLORIDE 102 MMOL/L (99-107); CREATININE 1.17 MG/DL (0.60-1.10); GLUCOSE 61 MG/DL (70-104); MAGNESIUM 1.8 MG/DL (1.5-2.4); POTASSIUM 4.2 MMOL/L (3.5-5.1); SODIUM 132 MMOL/L (135-145); TOTAL CARBON DIOXIDE 21.9 MMOL/L (24-32); TOTAL PROTEIN 5.4 G/DL (6.4-8.2); eGFR 69 ML/MIN
--- NOTE | 2021-12-19 02:31 | NUR ---
BG 68, DR MORALES WANTED INSULIN DRIP TURNED OFF.
[2021-12-19] MEDS: LORazepam 2 mg/ml vial IV PRN ×4 (02:58→20:25)
--- NOTE | 2021-12-19 03:00 | NUR ---
Discussed with Dr. Antoine pt's lab results and asked if we should do hyperglycemic protocol. Dr. Antoine states to continue with insulin drip and d5 1/2NS as we are and notify of low BG if any occur.
--- NOTE | 2021-12-19 04:34 | NUR ---
Advised Dr. Antoine of pt BG 102, as well as insulin drip continuing to be turned off. Dr. Antoine states to continue and turn on insulin drip at 1 at 0600. Pt lethargic but alert and able to follow directions when needed. Pt is difficult to wake up.
--- NOTE | 2021-12-19 06:10 | NUR ---
BG 120, STARTED INSULIN DRIP @ 1ML/HR PER DR. MORALES, D5W WITH NS 0.45% CONTINUES @ 250ML/HR.
--- NOTE | 2021-12-19 07:12 | NUR ---
PATIENT UP TO EDGE OF BED AND REQUESTED URINAL. PAT IN ER BED #7 WITHIN SIGHT OF NURSES STATION AT ALL TIMES. HEARD "THUMP" IN ROOM WITH PATIENT FOUND ON FLOOR ON RIGHT SIDE, DENIES ANY TRAUMA/PAIN AT THIS TIME, DID NOT STRIKE HEAD. PATIENT ASSISTED BACK INTO BED, HYGIENE AND LINEN CHANGE PROVIDED, ALL SAFETY MEASURES IN PLACE, [place] MADE AWARE.
[2021-12-19] MEDS: docusate sod 100mg capsule PO SCH ×2 (08:00→20:06)
[2021-12-19] MEDS: K and/or MAG REPLACEMENT MC SCH ×2 (08:00→20:00)
[2021-12-19] MEDS: pantoprazole 40MG/NS 100ML BAG 100 ML IV SCH (09:52)
[2021-12-19] MEDS: hydrocortisone 10mg tablet PO SCH (09:53)
[2021-12-19] MEDS: heparin, porcine 5000 units/ml vial SQ SCH ×2 (09:55→20:07)
[2021-12-19] MEDS: gabapentin 100mg capsule PO SCH (09:56)
[2021-12-19 10:46] LABS: ALBUMIN 2.6 G/DL (3.4-5.0); ANION GAP 7 (8-16); BLOOD UREA NITROGEN 13 MG/DL (7-18); BUN/CREATININE RATIO 17.1 (5.4-32.0); CALCIUM 7.9 MG/DL (8.5-10.1); CHLORIDE 101 MMOL/L (99-107); CREATININE 0.76 MG/DL (0.60-1.10); GLUCOSE 78 MG/DL (70-104); POTASSIUM 3.7 MMOL/L (3.5-5.1); SODIUM 132 MMOL/L (135-145); eGFR > 90 ML/MIN
[2021-12-19 11:00] VITALS: BP 134/78
[2021-12-19] MEDS ORDERED: DEXTROSE 15 GM of carb/4 tabs (each vial/BOTTLE has 4 tablets) PO PRN ×2 (11:30)
[2021-12-19] MEDS ORDERED: glucagon, human recombinant 1mg kit SUBCUT PRN (11:30)
[2021-12-19] MEDS ORDERED: MESSAGE TO PHARMACY PO ONE (11:30)
[2021-12-19] MEDS ORDERED: dextrose 50%-water 50ml dispensing syringe IV PRN ×2 (11:30)
[2021-12-19] MEDS: gabapentin 400mg capsule PO SCH (12:20)
--- NOTE | 2021-12-19 14:21 | NUR ---
DM consult: Pt admit dx DKA per EMR. Pt w/ hx T1DM, A1c 8.1, and BG 292 mg/dl upon admit though recently down to 78 mg/dl per EMR. Pt w/ hx EtOH abuse and intoxicated on admit. Pt not communicating on admit, unable to wake for DCP interview, and is a poor historian per EMR. Pt refused first carb control meal per EMR. LBM 12/18. Given above information, DM education deferred until pt is more appropriate. Recommend Folic acid given EtOH hx if MD agreeable. Will continue to monitor for nutrition intervention needs. Recommendations: 1. Continue carb control diet as tolerated 2. Continue thiamine, recommend folic acid if MD agreeable 3. Routine bowel care 4. Scaled wt this admit, subsequent weekly scaled wts Addendum: 12/19/21 at [address] Amended: Links added. Addendum: 12/19/21 at [address] I have reviewed assessment by academic intern
[2021-12-19 15:00] VITALS: BP 164/85
[2021-12-19 18:00] VITALS: BP 154/82
--- NOTE | 2021-12-19 18:00 | NUR ---
Oriente documentation: I have reviewed and agree with all interventions, assessments performed and documented by [facility] RN.
--- NOTE | 2021-12-19 18:25 | NUR ---
Problems reprioritized. Patient report given, questions answered & plan of care reviewed with Areli HERRERA.
--- NOTE | 2021-12-19 18:25 | NUR ---
Problems reprioritized. Patient report given, questions answered & plan of care reviewed with SHARON Singleton.
--- NOTE | 2021-12-19 18:54 | NUR ---
Patient in room PCU 3026. I have received report from SHARON Funk and had the opportunity to ask questions and assume patient care.
[2021-12-19] MEDS: insulin Lispro (HumaLOG) vial - multi-dose SQ SCH (20:17)
[2021-12-19] MEDS ORDERED: gabapentin 100mg capsule PO SCH (21:00)
[2021-12-19] MEDS ORDERED: insulin glargine (Lantus) pen - multi-dose SQ SCH (21:00)
[2021-12-19 22:00] VITALS: BP 139/79
[2021-12-19] MEDS: Neutra Phos packet PO PRN (22:47)
[2021-12-20 02:00] VITALS: BP 141/82
[2021-12-20] MEDS: LORazepam 2 mg/ml vial IV PRN (05:12)
[2021-12-20 06:00] VITALS: BP 136/88
[2021-12-20 06:02] LABS: BASOPHILS % (AUTO) 0.8 % (0-1); EOSINOPHILS # (AUTO) 0.1 X10'3 (0-0.9); HEMATOCRIT 29.8 % (42.0-52.0); HEMOGLOBIN 10.4 g/dl (14.0-17.9); LYMPHOCYTES # (AUTO) 1.4 X10'3 (1.1-4.8); LYMPHOCYTES % (AUTO) 24.9 % (21-51); MEAN CORPUSCULAR HEMOGLOBIN 31.8 PG (27.0-31.0); MEAN CORPUSCULAR VOLUME 90.9 FL (78-98); MEAN PLATELET VOLUME 8.2 FL (7.4-10.4); MONOCYTES # (AUTO) 0.4 X10'3 (0-0.9); MONOCYTES % (AUTO) 6.2 % (2-12); NEUTROPHILS # (AUTO) 3.8 X10'3 (1.8-7.7); NEUTROPHILS % (AUTO) 67.1 % (42-75); PLATELET COUNT 197 X10'3 (140-440); RED BLOOD COUNT 3.27 X10'6 (4.70-6.10); RED CELL DISTRIBUTION WIDTH 12.8 % (11.5-14.5); WHITE BLOOD COUNT 5.6 X10'3 (4.5-11.0)
--- NOTE | 2021-12-20 06:10 | NUR ---
Patient in room PCU 3026. I have received report from Caio HERRERA and had the opportunity to ask questions and assume patient care.
--- NOTE | 2021-12-20 06:14 | NUR ---
Problems reprioritized. Patient report given, questions answered & plan of care reviewed with Blessing RN and SHARON Cortes.
[2021-12-20 06:29] LABS: ALANINE AMINOTRANSFERASE 25 U/L (12-78); ALBUMIN 2.5 G/DL (3.4-5.0); ALBUMIN/GLOBULIN RATIO 0.9 (1.1-1.5); ALKALINE PHOSPHATASE 86 IU/L (46-116); ANION GAP 8 (8-16); ASPARTATE AMINO TRANSFERASE 31 U/L (10-37); BILIRUBIN,TOTAL 0.7 MG/DL (0.1-1.0); BLOOD UREA NITROGEN 6 MG/DL (7-18); BUN/CREATININE RATIO 7.8 (5.4-32.0); CALCIUM 8.4 MG/DL (8.5-10.1); CHLORIDE 103 MMOL/L (99-107); CREATININE 0.77 MG/DL (0.60-1.10); GLUCOSE 166 MG/DL (70-104); MAGNESIUM 1.6 MG/DL (1.5-2.4); POTASSIUM 3.6 MMOL/L (3.5-5.1); SODIUM 135 MMOL/L (135-145); TOTAL CARBON DIOXIDE 23.8 MMOL/L (24-32); TOTAL PROTEIN 5.4 G/DL (6.4-8.2); eGFR > 90 ML/MIN
--- NOTE | 2021-12-20 06:30 | NUR ---
Patient in room PCU 3026. I have received report from SHARON Singleton and had the opportunity to ask questions and assume patient care.
[2021-12-20] MEDS: normal saline 1000ml 1,000 ML IV SCH (07:52)
[2021-12-20] MEDS: pantoprazole 40MG/NS 100ML BAG 100 ML IV SCH (07:53)
[2021-12-20] MEDS: K and/or MAG REPLACEMENT MC SCH (08:00)
[2021-12-20] MEDS: docusate sod 100mg capsule PO SCH (08:00)
[2021-12-20] MEDS: gabapentin 100mg capsule PO SCH (08:05)
[2021-12-20] MEDS: hydrocortisone 10mg tablet PO SCH (08:05)
[2021-12-20] MEDS: heparin, porcine 5000 units/ml vial SQ SCH (08:06)
[2021-12-20] MEDS: insulin Lispro (HumaLOG) vial - multi-dose SQ SCH (08:19)
[2021-12-20] MEDS: LORazepam 1 MG tablet PO PRN ×3 (09:07→15:50)
[2021-12-20 11:00] VITALS: BP 91/53
--- NOTE | 2021-12-20 12:30 | NUR ---
F/u 12/20: Noted pt nausea persists per EMR documentation; will defer DM ed until more appropriate. Also noted PO thiamine ordered to start 12/23 pt has not received thiamine yet this admit w/ etoh DX per EMR. PATRICK d/w RN regarding thiamine starting today as well as addition of folic acid/MVI if MD agreeable. Addendum: 12/20/21 at [address] Amended: Links added.
[2021-12-20] MEDS: gabapentin 400mg capsule PO SCH (12:35)
[2021-12-20 15:00] VITALS: BP 147/98
--- NOTE | 2021-12-20 15:32 | NUR ---
Paged hospitalist: PAGER ID: [phone] MESSAGE: Room: [id number]: Juarez: Pt's discharge medications need to be finalized in order for me to discharge them. Can you please finalize their medications? -[facility] [phone]
--- NOTE | 2021-12-20 16:00 | NUR ---
Orientee documentation: I have reviewed and agree with all interventions, assessments performed and documented by Blessing RN.
--- NOTE | 2021-12-20 16:15 | NUR ---
Patient discharged from the hospital to home. A family member picked them up from the hospital. Discharge paperwork was reviewed and signed with this leader writer. PIV and telemetry were removed at the time of discharge. All patient belongings were provided back to the patient. No home medications were brought to the hospital to be returned.
[2021-12-20] MEDS ORDERED: LORazepam 1 MG tablet PO PRN (21:55)
[2021-12-22] MEDS ORDERED: LORazepam 1 MG tablet PO PRN (21:55)
[2021-12-23] MEDS ORDERED: thiamine 100mg tablet PO SCH (08:00)
== END 2021-12-20 16:21 | disposition home or self-care (01) | DRG 420 ==
LOC: ER 18:12 → ED HOLD 21:51 → EDBEDREQ 22:21 → PCU 3S 12-19 08:45
PROVIDERS: ADMIT Internal Medicine; ATTEND Internal Medicine
DX: E10.10 Type 1 diabetes mellitus with ketoacidosis without coma (principal); R64 Cachexia; F10.10 Alcohol abuse, uncomplicated; F15.10 Other stimulant abuse, uncomplicated; R00.0 Tachycardia, unspecified; E86.0 Dehydration; R19.7 Diarrhea, unspecified; Z79.4 Long term (current) use of insulin; Z80.1 Family history of malignant neoplasm of trachea, bronchus and lung; Z91.14 Patient's other noncompliance with medication regimen; Z79.899 Other long term (current) drug therapy; Z68.24 Body mass index [BMI] 24.0-24.9, adult
CPT/HCPCS: 36415; 71045; 80048; 80053; 80305; 80320; 82948; 83036; 83690; 83735; 84100; 85025; 87081; 93005; 96365; 96375; 99285; C9113; G0378; J1200; J1644; J1815; J2060; J2765; J7030; J7042